=== PATIENT | female | born 1925 | race Caucasian/White ===

== ENCOUNTER 2016-04-20 00:18 | Inpatient (IN) ==
--- NOTE | 2016-04-20 00:53 | Emergency Department Note ---
Disposition Clinical Impression: Bacteriuria Pneumonia Qualifiers: Aspiration pneumonia type: unspecified Laterality: right Lung location: upper lobe of lung Altered mental status Qualifiers: Altered mental status type: unspecified Qualified Code(s): R41.82 - Altered mental status, unspecified Fever Qualifiers: Fever type: unspecified Qualified Code(s): R50.9 - Fever, unspecified Disposition: Admitted As Inpatient Condition: Fair General Adult HPI - General Chief complaint: ED Altered Mental Status Stated complaint: altered mental status, HTN Source: EMS Nursing Notes Reviewed: Yes Vital Signs Reviewed: Yes - History of Present Illness HPI Narrative: 89 y/o female with dementia. At a group home and had worsening mental status. She will not answer questions and follows commands sporatically. PMH of HTN, GERD, dementia. Nursing report said approximately 5 hrs [employer] she was acting more of herself. No focal neurologic signs. No facial droop. Pain Scale: 0 Improves with: nothing Worsens with: nothing Treatments Prior to Arrival: none - Related Data Home Medications Medication Instructions Recorded Confirmed Albuterol Sulfate [Albuterol 1 - 2 puff IH Q6H PRN 11/08/14 07/25/15 Inhaler] Budesonide/Formoterol 160/4.5 2 puff IH BID 11/08/14 07/25/15 [Symbicort] Cholecalciferol (Vitamin D3) 2,000 unit PO DAILY 11/08/14 07/25/15 [Vitamin D3] Cyanocobalamin (B-12) [Vitamin B12] 1,000 mcg IM QMONTH 11/08/14 07/25/15 Divalproex (24 HR) [Depakote ER 250 mg PO BID 11/08/14 07/25/15 (24 HR)] Docusate [Colace] 100 mg PO BID 11/08/14 07/25/15 Escitalopram [Lexapro] 5 mg PO DAILY 11/08/14 07/25/15 Gabapentin [Gralise] 300 mg PO BID 11/08/14 07/25/15 Isosorbide MONOnitrate (24 HR) 60 mg PO DAILY 11/08/14 07/25/15 [Imdur] Meclizine [Antivert] 12.5 mg PO DAILY PRN 11/08/14 07/25/15 Simvastatin [Zocor] 20 mg PO QPM 11/08/14 07/25/15 Tiotropium [Spiriva] 18 mcg IH DAILY 11/08/14 07/25/15 Acetaminophen [Tylenol] 325 mg PO Q6HR PRN 02/15/15 07/25/15 Ferrous Sulfate 325 mg PO DAILY 02/15/15 05/25/15 Metoprolol XL (24 HR) Succ [Toprol 50 mg PO DAILY 02/15/15 07/25/15 XL] Ranolazine [Ranexa] 1,000 mg PO BID 02/15/15 07/25/15 Bisacodyl [Dulcolax] 10 mg RC DAILY PRN 05/14/15 07/25/15 Mag Hydrox/Al Hydrox/Simeth 30 ml PO Q8H PRN 05/14/15 07/25/15 [Antacid II-Simethicone Liq] Menthol [Biofreeze] 1 appl TP TID PRN 05/14/15 07/25/15 Nitroglycerin [Nitrostat] 0.4 mg SL AD PRN 05/14/15 07/25/15 Amlodipine [Norvasc] 2.5 mg PO DAILY 07/25/15 07/25/15 Previous Rx's Medication Instructions Recorded Omeprazole [PriLOSEC] 40 mg PO DAILY@0600 #0 capsule 05/27/15 Allergies Allergy/AdvReac Type Severity Reaction Status Date / Time codeine Allergy See Verified 04/20/16 00:21 Comments Iodinated Contrast Media - Allergy See Verified 04/20/16 00:21 Oral and Comments [Iodinated Contrast Media - IV Dye] iodine Allergy See Verified 04/20/16 00:21 Comments Limitations: ROS unobtainable due to patients medical condition Past Medical History - Past Medical History Medical history: Reports: COPD, dementia, diabetes, hyperlipidemia, hypertension , myocardial infarction, renal disease Surgical history: Reports: other Psychiatric history: Reports: depression - Social History Smoking Status: Never smoker Smokeless Tobacco Status: No Alcohol use: Reports: none Drug use: Reports: none Physical Exam - General Limitations: altered mental status General appearance: alert, cachectic - Head Head exam: atraumatic - Eye Eye exam: Present: normal appearance - ENT ENT exam: normal exam, normal oropharynx - Neck Neck exam: Present: normal inspection - Chest Chest inspection: Present: normal inspection - Respiratory Respiratory exam: Present: other (coarse lung soundso n the right.). Absent: respiratory distress - Cardiovascular Cardiovascular exam: Present: regular rate, normal rhythm - Abdominal Exam Abdominal exam: Present: soft, Non-Tender - Extremities Exam Extremities exam: Present: normal inspection - Neurological Exam Neurological exam: Present: alert, other (follows simple commands. Decreased general muscle strength) - Skin Skin exam: Present: warm, dry Course Course Narrative: No stroke alert called as this is a generalized confusion with no focal deficit. Will do AMS workup. - Reevaluation(s) Reevaluation #1: She has been coughing in the ER. Combination of the fever, cough leads me to empirically treat for pneumonia. Urine has bacteria but no white cells. She is DNR-cc but she is unable to currently take oral antibiotics due to her mental status. Will admit for iv abx and fluids. Accepted by Dr Linton Vital Signs Temperature 99.2 F 04/20/16 00:27 Pulse Rate 95 04/20/16 00:27 Respiratory Rate 26 04/20/16 00:27 Blood Pressure 224/132 04/20/16 00:27 O2 Sat by Pulse Oximetry 93 L 04/20/16 00:27 Temperature 101.4 F H 04/20/16 01:28 Pulse Rate 92 04/20/16 03:31 Respiratory Rate 18 04/20/16 03:31 Blood Pressure 165/134 04/20/16 03:31 O2 Sat by Pulse Oximetry 94 L 04/20/16 03:31 Oxygen Delivery Oxygen Delivery Nasal Cannula Medical Decision Making - Medical Records Medical records reviewed: Yes I reviewed the patient's medical records. - Lab Data Lab results reviewed: Yes I reviewed the patient's lab results. Result diagrams: 04/20/16 01:05 04/20/16 01:05 Lab Results 04/20/16 04/20/16 04/20/16 Range/Units 00:25 01:05 01:05 WBC 5.1 (4.3-11.1) K/mcL RBC 5.01 H (3.82-4.97) M/mcL Hgb 15.2 D (11.5-15.4) g/dL Hct 43.9 (35.3-44.9) % MCV 87.6 (83.0-100.0) fL MCH 30.3 (28.0-33.3) pg MCHC 34.6 (31.6-35.5) g/dL RDW 13.6 (11.5-14.5) % Plt Count 208 (140-400) K/mcL MPV 9.7 (9.4-12.4) fL Immature Gran % 0.4 (0-4) % Seg Neutrophils % 79.5 % Lymphocytes % 12.3 % Monocytes % 7.6 % Eosinophils % 0.0 % Basophils % 0.2 % Neutrophils # 4.1 (1.6-8.9) K/mcL Lymphocytes # 0.6 (0.6-4.6) K/mcL Monocytes # 0.4 (0.0-1.3) K/mcL Eosinophils # 0.0 (0.0-0.6) K/mcL Basophils # 0.0 (0.0-0.2) K/mcL PT 12.2 H (9.4-12.1) Seconds INR 1.1 APTT 26.9 (26.0-36.0) Seconds Sodium (136-145) mEq/L Potassium (3.5-4.5) mEq/L Chloride (98-109) mEq/L Carbon Dioxide (19-29) mEq/L BUN (7-20) mg/dL Creatinine (0.57-1.11) mg/dL Est GFR ( Amer) (> 60) Est GFR (Non-Af Amer) (> 60) BUN/Creatinine Ratio (6-26) Glucose (70-99) mg/dL POC Glucose 129 H (58-89) Calculated Osmolality (280-300) Lactic Acid (0.5-2.2) mmol/L Calcium (8.6-10.8) mg/dL Total Bilirubin (0.2-1.2) mg/dL Direct Bilirubin (0.0-0.5) mg/dL Indirect Bilirubin (0.0-1.2) mg/dL AST (5-34) Units/L ALT (0-55) Units/L Alkaline Phosphatase (38-126) Units/L Ammonia (18-72) mcmol/L Troponin I (0-0.03) ng/mL Serum Total Protein (6.0-8.3) g/dL Albumin (3.5-5.0) g/dL Globulin (2.4-3.5) g/dL Albumin/Globulin Ratio (1.1-2.2) Urine Color (Yellow) Urine Clarity (Clear) Urine pH (5.0-8.0) pH Units Ur Specific [place] (1.010-1.025) Urine Protein (Neg-Trace) mg/dL Urine Glucose (UA) (Normal) mg/dL Urine Ketones (Negative) mg/dL Urine Blood (Negative) Urine Nitrite (Negative) Urine Bilirubin (Negative) Urine Urobilinogen (Normal) mg/dL Ur Leukocyte Esterase (Negative) Urine Microscopic RBC (0-3) per hpf Urine Microscopic WBC (0-3) per hpf Ur Squamous Epith Cells (None-Few) per lpf Urine Bacteria (None-Few) per hpf Hyaline Casts (None-Few) per lpf Ur Culture Indicated? (NO) Urine Opiates Screen (Psnfys=696) ng/mL Ur Barbiturates Screen (Nqwcod=159) ng/mL Ur Phencyclidine Scrn (Cutoff=25) ng/mL Ur Amphetamines Screen (Shtheh=3660) ng/mL U Benzodiazepines Scrn (Smovhb=730) ng/mL Urine Cocaine Screen (Cutoff= 300) ng/mL U Marijuana (THC) Screen (Cutoff = 50) ng/mL Ethyl Alcohol (0-10) mg/dL 04/20/16 04/20/16 04/20/16 Range/Units 01:05 01:05 01:05 WBC (4.3-11.1) K/mcL RBC (3.82-4.97) M/mcL Hgb (11.5-15.4) g/dL Hct (35.3-44.9) % MCV (83.0-100.0) fL MCH (28.0-33.3) pg MCHC (31.6-35.5) g/dL RDW (11.5-14.5) % Plt Count (140-400) K/mcL MPV (9.4-12.4) fL Immature Gran % (0-4) % Seg Neutrophils % % Lymphocytes % % Monocytes % % Eosinophils % % Basophils % % Neutrophils # (1.6-8.9) K/mcL Lymphocytes # (0.6-4.6) K/mcL Monocytes # (0.0-1.3) K/mcL Eosinophils # (0.0-0.6) K/mcL Basophils # (0.0-0.2) K/mcL PT (9.4-12.1) Seconds INR APTT (26.0-36.0) Seconds Sodium 136 (136-145) mEq/L Potassium 3.8 (3.5-4.5) mEq/L Chloride 99 (98-109) mEq/L Carbon Dioxide 22 (19-29) mEq/L BUN 22 H (7-20) mg/dL Creatinine 0.83 (0.57-1.11) mg/dL Est GFR ( Amer) > 60 (> 60) Est GFR (Non-Af Amer) > 60 (> 60) BUN/Creatinine Ratio 27 H (6-26) Glucose 136 H (70-99) mg/dL POC Glucose (58-89) Calculated Osmolality 287 (280-300) Lactic Acid (0.5-2.2) mmol/L Calcium 9.9 (8.6-10.8) mg/dL Total Bilirubin 0.6 (0.2-1.2) mg/dL Direct Bilirubin 0.2 (0.0-0.5) mg/dL Indirect Bilirubin 0.4 (0.0-1.2) mg/dL AST 16 (5-34) Units/L ALT 7 (0-55) Units/L Alkaline Phosphatase 80 (38-126) Units/L Ammonia 20 (18-72) mcmol/L Troponin I 0.02 (0-0.03) ng/mL Serum Total Protein 7.7 (6.0-8.3) g/dL Albumin 3.5 (3.5-5.0) g/dL Globulin 4.2 H (2.4-3.5) g/dL Albumin/Globulin Ratio 0.8 L (1.1-2.2) Urine Color (Yellow) Urine Clarity (Clear) Urine pH (5.0-8.0) pH Units Ur Specific [place] (1.010-1.025) Urine Protein (Neg-Trace) mg/dL Urine Glucose (UA) (Normal) mg/dL Urine Ketones (Negative) mg/dL Urine Blood (Negative) Urine Nitrite (Negative) Urine Bilirubin (Negative) Urine Urobilinogen (Normal) mg/dL Ur Leukocyte Esterase (Negative) Urine Microscopic RBC (0-3) per hpf Urine Microscopic WBC (0-3) per hpf Ur Squamous Epith Cells (None-Few) per lpf Urine Bacteria (None-Few) per hpf Hyaline Casts (None-Few) per lpf Ur Culture Indicated? (NO) Urine Opiates Screen (Wyspbs=100) ng/mL Ur Barbiturates Screen (Folhwq=125) ng/mL Ur Phencyclidine Scrn (Cutoff=25) ng/mL Ur Amphetamines Screen (Zzusot=9615) ng/mL U Benzodiazepines Scrn (Bnvqab=211) ng/mL Urine Cocaine Screen (Cutoff= 300) ng/mL U Marijuana (THC) Screen (Cutoff = 50) ng/mL Ethyl Alcohol < 10 (0-10) mg/dL 04/20/16 04/20/16 04/20/16 Range/Units 01:18 01:18 01:45 WBC (4.3-11.1) K/mcL RBC (3.82-4.97) M/mcL Hgb (11.5-15.4) g/dL Hct (35.3-44.9) % MCV (83.0-100.0) fL MCH (28.0-33.3) pg MCHC (31.6-35.5) g/dL RDW (11.5-14.5) % Plt Count (140-400) K/mcL MPV (9.4-12.4) fL Immature Gran % (0-4) % Seg Neutrophils % % Lymphocytes % % Monocytes % % Eosinophils % % Basophils % % Neutrophils # (1.6-8.9) K/mcL Lymphocytes # (0.6-4.6) K/mcL Monocytes # (0.0-1.3) K/mcL Eosinophils # (0.0-0.6) K/mcL Basophils # (0.0-0.2) K/mcL PT (9.4-12.1) Seconds INR APTT (26.0-36.0) Seconds Sodium (136-145) mEq/L Potassium (3.5-4.5) mEq/L Chloride (98-109) mEq/L Carbon Dioxide (19-29) mEq/L BUN (7-20) mg/dL Creatinine (0.57-1.11) mg/dL Est GFR ( Amer) (> 60) Est GFR (Non-Af Amer) (> 60) BUN/Creatinine Ratio (6-26) Glucose (70-99) mg/dL POC Glucose (58-89) Calculated Osmolality (280-300) Lactic Acid 1.1 (0.5-2.2) mmol/L Calcium (8.6-10.8) mg/dL Total Bilirubin (0.2-1.2) mg/dL Direct Bilirubin (0.0-0.5) mg/dL Indirect Bilirubin (0.0-1.2) mg/dL AST (5-34) Units/L ALT (0-55) Units/L Alkaline Phosphatase (38-126) Units/L Ammonia (18-72) mcmol/L Troponin I (0-0.03) ng/mL Serum Total Protein (6.0-8.3) g/dL Albumin (3.5-5.0) g/dL Globulin (2.4-3.5) g/dL Albumin/Globulin Ratio (1.1-2.2) Urine Color Yellow (Yellow) Urine Clarity Slightly Cloudy A (Clear) Urine pH 7.0 (5.0-8.0) pH Units Ur Specific [place] 1.020 (1.010-1.025) Urine Protein 100 H (Neg-Trace) mg/dL Urine Glucose (UA) Normal (Normal) mg/dL Urine Ketones Negative (Negative) mg/dL Urine Blood Small H (Negative) Urine Nitrite Negative (Negative) Urine Bilirubin Negative (Negative) Urine Urobilinogen Normal (Normal) mg/dL Ur Leukocyte Esterase Negative (Negative) Urine Microscopic RBC 15-30 H (0-3) per hpf Urine Microscopic WBC 0-3 (0-3) per hpf Ur Squamous Epith Cells Many H (None-Few) per lpf Urine Bacteria Many H (None-Few) per hpf Hyaline Casts None Seen (None-Few) per lpf Ur Culture Indicated? NO (NO) Urine Opiates Screen Negative (Hmoivw=418) ng/mL Ur Barbiturates Screen Negative (Dxtryf=784) ng/mL Ur Phencyclidine Scrn Negative (Cutoff=25) ng/mL Ur Amphetamines Screen Negative (Epnobl=8308) ng/mL U Benzodiazepines Scrn Negative (Jgvddh=925) ng/mL Urine Cocaine Screen Negative (Cutoff= 300) ng/mL U Marijuana (THC) Screen Negative (Cutoff = 50) ng/mL Ethyl Alcohol (0-10) mg/dL - Radiology Data Radiology results reviewed: Yes I reviewed the patient's radiology results. - EKG Data EKG #1 EKG attestation: Yes I reviewed and interpreted this EKG. EKG shows normal: sinus rhythm Rate: tachycardia Rhythm: NSR [place]/QRS: normal Interpretation: no acute changes Attestation Statement - Attestation Attestation: I, Compa Downs MD, personally performed a history and physical exam of the patient and discussed their management with the resident. I reviewed the resident's note and agree with the documented findings, medical decision making , and plan of care. 89-year-old female sent to the emergency department from a local group home because of acute change in her mental status. She was last seen by the group home staff about 4 hours prior to arrival and seemed to be her baseline self at that time. They found her tonight less alert and responsive than usual. On arrival here the patient is awake but does not answer questions or follow commands. No gross focal deficits noted. She does have a frequent moist cough. She also was noted to have a fever at the group home and also has a fever here. senior living papers indicate that she is a DNR comfort care. On examination patient is an elderly female in no acute distress. There is no cyanosis or diaphoresis. Mucous membranes are dry. Breath sounds are decreased but equal bilaterally. Heart regular rate and rhythm. Abdomen soft with normal bowel sounds. No gross focal neurological deficits. Labs reviewed. She does have moderate bacteria in her urine which was a catheterized specimen. On my interpretation she appears to have a right upper lobe infiltrate on her chest x-ray. The hospitalist, Dr. Linton, was consulted and accepted the admission of the patient.
[2016-04-20] MEDS ORDERED: *HR* Labetalol 20 MG/4 ML SYRINGE IVP ONE (00:54)
[2016-04-20 01:16] LABS: Basophils % 0.2 %; Hematocrit 43.9 % (35.3-44.9); Immature Granulocytes % 0.4 % (0-4); Lymphocytes # 0.6 K/mcL (0.6-4.6); Lymphocytes % 12.3 %; Mean Corpuscular HGB Conc 34.6 g/dL (31.6-35.5); Mean Corpuscular Hemoglobin 30.3 pg (28.0-33.3); Mean Corpuscular Volume 87.6 fL (83.0-100.0); Mean Platelet Volume 9.7 fL (9.4-12.4); Monocytes # 0.4 K/mcL (0.0-1.3); Monocytes % 7.6 %; Neutrophils # 4.1 K/mcL (1.6-8.9); Platelet Count 208 K/mcL (140-400); Red Blood Count 5.01 M/mcL (3.82-4.97); Red Cell Distribution Width 13.6 % (11.5-14.5); Segmented Neutrophils % 79.5 %
[2016-04-20 01:21] LABS: Hemoglobin 15.2 g/dL (11.5-15.4); INR 1.1; Prothrombin Time 12.2 Seconds (9.4-12.1)
[2016-04-20 01:24] LABS: Activated Partial Thrombo Time 26.9 Seconds (26.0-36.0)
[2016-04-20 01:28] LABS: Bilirubin,Urine Negative (Negative); Blood,Urine Small (Negative); Clarity,Urine Slightly Cloudy (Clear); Color,Urine Yellow (Yellow); Glucose,Urine (UA) Normal (Normal); Ketones,Urine Negative (Negative); Leukocyte Esterase,Urine Negative (Negative); Nitrite,Urine Negative (Negative); Protein,Urine 100 mg/dL (Neg-Trace); Urobilinogen,Urine Normal (Normal)
[2016-04-20 01:32] LABS: Alanine Aminotransferase 7 Units/L (0-55); Albumin 3.5 g/dL (3.5-5.0); Albumin/Globulin Ratio 0.8 (1.1-2.2); Alkaline Phosphatase 80 Units/L (38-126); Aspartate Amino Transferase 16 Units/L (5-34); BUN/Creatinine Ratio 27 (6-26); Bilirubin,Direct 0.2 mg/dL (0.0-0.5); Bilirubin,Indirect 0.4 mg/dL (0.0-1.2); Bilirubin,Total 0.6 mg/dL (0.2-1.2); Blood Urea Nitrogen 22 mg/dL (7-20); Calcium 9.9 mg/dL (8.6-10.8); Carbon Dioxide 22 mEq/L (19-29); Chloride 99 mEq/L (98-109); Globulin 4.2 g/dL (2.4-3.5); Glucose 136 mg/dL (70-99); Osmolality,Calculated 287 (280-300); Potassium 3.8 mEq/L (3.5-4.5); Sodium 136 mEq/L (136-145); Total Protein 7.7 g/dL (6.0-8.3); eGFR For African Americans > 60 (> 60); eGFR For Non-African Americans > 60 (> 60)
[2016-04-20 01:33] LABS: Ethanol < 10 mg/dL (0-10)
[2016-04-20 01:35] LABS: Amphetamine Screen,Urine Negative ng/mL (Cutoff=1000); Barbiturate Screen,Urine Negative ng/mL (Cutoff=200); Benzodiazepines Screen,Urine Negative ng/mL (Cutoff=200); Cannabinoid Screen,Urine Negative ng/mL (Cutoff = 50); Cocaine Screen,Urine Negative ng/mL (Cutoff= 300); Opiate Screen,Urine Negative ng/mL (Cutoff=300); Phencyclidine Screen,Urine Negative ng/mL (Cutoff=25)
[2016-04-20 01:40] LABS: Bacteria,Urine Many per hpf (None-Few); Hyaline Casts,Urine None Seen per lpf (None-Few); RBC,Urine 15-30 per hpf (0-3); Squamous Epithelial Cell,Urine Many per lpf (None-Few); WBC,Urine 0-3 per hpf (0-3)
[2016-04-20] MEDS ORDERED: Acetaminophen 650 MG RECTAL SUPP RC ONE (02:05)
[2016-04-20] MEDS ORDERED: 0.9 % Sodium Chloride 1,000 ML IVC ONE (03:53)
[2016-04-20] MEDS ORDERED: Vancomycin 1,000 MG in D5% in Water 250 ML IVPB ONE (03:53)
[2016-04-20] MEDS ORDERED: Piperacillin/Tazobactam 3.375 GM in D5% in Water (Mini-Bag+) 100 ML IVPB ONE (03:53)
[2016-04-20] MEDS ORDERED: Levofloxacin 750 MG/150 ML 750 MG/150 ML BAG IVPB ONE (03:53)
--- NOTE | 2016-04-20 05:03 | Internal Med History&Physical ---
<ZoltanJuan - Last Filed: 04/20/16 05:30> Date of Encounter: 04/20/16 Time of Encounter: 04:40 Assessment and Plan (1) Sepsis Status: Acute Patient did present with a fever and mild tachycardia but does not have a white count Her chest x-ray showed possible consolidation in the right upper lobe We will evaluate further with noncontrast CAT scan of chest abdomen and pelvis to rule out other sources of infection Will continue with vancomycin and Zosyn as she is resides in a halfway and is at risk for MDR pathogens Blood cultures have been collected, will also obtain urinary strep and Legionella antigens Qualifiers: Qualified Code(s): A41.9 - Sepsis, unspecified organism (2) Hypertensive urgency Status: Acute Patient presented with systolic blood pressure of 220 and responded appropriately with labetalol Will order labetalol PRN if SBP > 190 but hold if SBP < 160 Blood pressure likely contributing to patient's altered mental status Holding home antihypertensives until patient can swallow (3) Altered mental status Status: Acute Etiology is unclear, will workup metabolic versus infectious She does appear to be improving since arrival to ER for her blood pressure was better controlled Qualifiers: Altered mental status type: unspecified Qualified Code(s): R41.82 - Altered mental status, unspecified (4) COPD (chronic obstructive pulmonary disease) Status: Acute Patient appears to be breathing comfortably on home dose of oxygen Start with breathing treatments scheduled Qualifiers: Qualified Code(s): J44.9 - Chronic obstructive pulmonary disease, unspecified (5) DVT prophylaxis Status: Acute Heparin 5000 units subcutaneous twice a day Internal Medicine - H&P: HPI Chief complaint: altered mental status Admitted From: Long-term Nursing Facility Plans for Post Hospital Care: Transfer Longterm Care History of present illness: Ms. Miramontes is a 89 year old female who presents from her halfway with altered mental status. Advanced dementia and there is no family at bedside so all history is obtained from records and ER staff. Apparently, halfway sent patient to ED due to or mental status started 5 hours prior to arrival. She did not have any focal symptoms however she is unable to swallow any food and did not respond appropriately to commands. Her baseline mental status is unknown, however she apparently can swallow foods while back in the halfway. During the time of the exam, she was able to respond to some commands such as squeezing my fingers and said no when asked if she was experiencing any pain or issues breathing. Initial plan was to send patient back to halfway with oral antibiotics, but she will be admitted for IV antibiotics and fluid replacement. Past Med Surg Social Fam HX - Past Medical History Medical history: COPD, dementia, diabetes, hyperlipidemia, hypertension, myocardial infarction, renal disease Psychiatric history: depression - Past Surgical History Surgical History: other - Social History Smoking Status: Never smoker Smokeless Tobacco Status: No Alcohol use: none Drug use: none Internal Medicine - H&P: Meds Albuterol Sulfate [Albuterol Inhaler] 1 - 2 puff IH Q6H PRN 11/08/14 [History] Budesonide/Formoterol 160/4.5 [Symbicort] 2 puff IH BID 11/08/14 [History] Cholecalciferol (Vitamin D3) [Vitamin D3] 2,000 unit PO DAILY 11/08/14 [History] Cyanocobalamin (B-12) [Vitamin B12] 1,000 mcg IM QMONTH 11/08/14 [History] Divalproex (24 HR) [Depakote ER (24 HR)] 125 mg PO BID 11/08/14 [History] Gabapentin [Gralise] 300 mg PO BID 11/08/14 [History] Isosorbide MONOnitrate (24 HR) [Imdur] 30 mg PO DAILY 11/08/14 [History] Simvastatin [Zocor] 20 mg PO QPM 11/08/14 [History] Tiotropium [Spiriva] 18 mcg IH DAILY 11/08/14 [History] Acetaminophen [Tylenol] 325 mg PO Q6HR PRN 02/15/15 [History] Metoprolol XL (24 HR) Succ [Toprol XL] 50 mg PO BID 02/15/15 [History] Ranolazine [Ranexa] 1,000 mg PO BID 02/15/15 [History] Bisacodyl [Dulcolax] 10 mg RC DAILY PRN 05/14/15 [History] Mag Hydrox/Al Hydrox/Simeth [Antacid II-Simethicone Liq] 30 ml PO Q8H PRN [History] Menthol [Biofreeze] 1 appl TP TID PRN 05/14/15 [History] Nitroglycerin [Nitrostat] 0.4 mg SL Q5-6MIN PRN 05/14/15 [History] Docusate [Colace] 100 mg PO BID 04/20/16 [History] Furosemide [Lasix] 20 mg PO DAILY 04/20/16 [History] Magnesium Hydroxide [Milk of Magnesia] 30 ml PO DAILY PRN 04/20/16 [History] Levofloxacin [Levaquin] 500 mg PO DAILY #10 tablet 04/22/16 [Rx] Rivaroxaban [Xarelto] 15 mg PO DAILY #30 tablet 04/22/16 [Rx] Allergies codeine Allergy (Verified 04/20/16 00:21) See Comments Iodinated Contrast Media - Oral and [Iodinated Contrast Media - IV Dye] Allergy (Verified 04/20/16 00:21) See Comments iodine Allergy (Verified 04/20/16 00:21) See Comments ROS unobtainable: due to mental status All Systems PM: A 10-system review of systems was performed and is negative for pertinent findings except as documented above in the HPI. - Constitutional Vitals: Temp Pulse Resp BP Pulse Ox 101.4 F H 92 18 170/85 94 L 04/20/16 01:28 04/20/16 03:31 04/20/16 04:44 04/20/16 04:44 04/20/16 03:31 General appearance: Present: cachectic, A&O X 0, no acute distress. Absent: answers questions appropriately - Head Head exam: Present: atraumatic, normocephalic - Eye Eye exam: Present: PERRL, conjuntiva pink, sclera anicteric - Neck Neck exam general surgery: Present: supple, trachea midline. Absent: lymphadenopathy - Respiratory Respiratory exam: Present: rhonchi. Absent: accessory muscle use, rales, respiratory distress, wheezes - Cardiovascular Cardiovascular exam: Present: RRR, +S1, +S2. Absent: diastolic murmur, gallop, rubs, systolic murmur - GI/Abdominal GI/Abdominal exam: Present: normal bowel sounds, soft, no peritoneal signs. Absent: distended, tenderness - Extremities Exam Extremities exam: Present: warm, radial pulses palpable and symetrical. Absent : calf tenderness, cyanotic, pedal edema - Neurological Exam Neurological exam: Present: alert (does follow simple commands), no focal deficits. Absent: oriented X3, strengths equal and symetr throughout (general muscle weakness throughout), pronater drift, facial droop, speech deficit - Skin Skin exam: Present: dry, intact Internal Med - H&P Results - Labs CBC & Chem 7: 04/20/16 01:05 04/20/16 01:05 Labs: Short CBC 04/20/16 Range/Units 01:05 WBC 5.1 (4.3-11.1) K/mcL Hgb 15.2 D (11.5-15.4) g/dL Hct 43.9 (35.3-44.9) % Plt Count 208 (140-400) K/mcL Neutrophils # 4.1 (1.6-8.9) K/mcL BMP 04/20/16 01:05 Sodium 136 Potassium 3.8 Chloride 99 Carbon Dioxide 22 BUN 22 H Creatinine 0.83 Glucose 136 H Calcium 9.9 Cardiac Enzymes 04/20/16 Range/Units 01:05 Troponin I 0.02 (0-0.03) ng/mL Liver Function 04/20/16 Range/Units 01:05 Total Bilirubin 0.6 (0.2-1.2) mg/dL Direct Bilirubin 0.2 (0.0-0.5) mg/dL AST 16 (5-34) Units/L ALT 7 (0-55) Units/L Alkaline Phosphatase 80 (38-126) Units/L Albumin 3.5 (3.5-5.0) g/dL Urine 04/20/16 Range/Units 01:18 Urine Color Yellow (Yellow) Urine Clarity Slightly Cloudy A (Clear) Urine pH 7.0 (5.0-8.0) pH Units Ur Specific [place] 1.020 (1.010-1.025) Urine Protein 100 H (Neg-Trace) mg/dL Urine Glucose (UA) Normal (Normal) mg/dL - Impressions ITS Impressions Chest X-Ray 04/20/16 00:33 IMPRESSION: 1. No acute cardiopulmonary disease. Of note, evaluation of the right upper lobe is limited secondary to patient positioning. 2. COPD. D/ / Shahla Hinojosa MD / Shahla Hinojosa MD Interpreting Provider: Shahla Hinojosa MD Head CT 04/20/16 02:05 IMPRESSION: No acute intracranial abnormality. Involutional changes and moderate to severe chronic small vessel ischemic disease. D/ / Chelsey Perdomo MD / Chelsey Perdomo MD Interpreting Provider: Chelsey Perdomo MD <Jackson Linton - Last Filed: 04/25/16 01:57> Date of Encounter: 04/20/16 Assessment and Plan (1) Advanced dementia Status: Chronic . (2) SIRS (systemic inflammatory response syndrome) Status: Acute . (3) Acute and chronic respiratory failure with hypoxia Status: Acute . (4) Dehydration Status: Acute . (5) Dysphagia Status: Acute . Qualifiers: Dysphagia type: unspecified Qualified Code(s): R13.10 - Dysphagia, unspecified (6) DNR (do not resuscitate) Status: Chronic . (7) Fever Status: Acute . Qualifiers: Fever type: unspecified Qualified Code(s): R50.9 - Fever, unspecified (8) Sepsis Status: Acute . Qualifiers: Sepsis type: sepsis due to unspecified organism Qualified Code(s): A41.9 - Sepsis, unspecified organism (9) Alzheimers disease Status: Chronic . Qualifiers: Alzheimer's disease onset: late-onset Dementia behavioral disturbance: without behavioral disturbance Qualified Code(s): G30.1 - Alzheimer's disease with late onset; F02.80 - Dementia in other diseases classified elsewhere without behavioral disturbance (10) Atrial fibrillation Status: Chronic . Qualifiers: Atrial fibrillation type: chronic Qualified Code(s): I48.2 - Chronic atrial fibrillation (11) CAD (coronary artery disease) Status: Chronic . Qualifiers: Coronary Disease-Associated Artery/Lesion type: [place] artery [place] vs. transplanted heart: [place] heart Associated angina: with stable angina Qualified Code(s): I25.118 - Atherosclerotic heart disease of [place] coronary artery with other forms of angina pectoris (12) COPD (chronic obstructive pulmonary disease) Status: Chronic . Qualifiers: COPD type: unspecified COPD Qualified Code(s): J44.9 - Chronic obstructive pulmonary disease, unspecified (13) Diabetes mellitus Status: Chronic . Qualifiers: Diabetes mellitus type: type 2 Diabetes mellitus complication status: with kidney complications Diabetes mellitus complication detail: with chronic kidney disease Diabetes mellitus long term care social worker insulin use: with halfway use Chronic kidney disease stage: stage 3 (moderate) Qualified Code(s): E11.22 - Type 2 diabetes mellitus with diabetic chronic kidney disease; N18.3 - Chronic kidney disease, stage 3 (moderate); Z79.4 - long term care social worker (current) use of insulin (14) Hypertension Status: Chronic . (15) Altered mental status Status: Acute . Qualifiers: Altered mental status type: delirium Qualified Code(s): R41.0 - Disorientation, unspecified (16) Hypertensive urgency Status: Acute . (17) HCAP (healthcare-associated pneumonia) Status: Acute . (18) Aspiration into respiratory tract Status: Acute . Qualifiers: Encounter type: initial encounter Qualified Code(s): T17.908A - Unspecified foreign body in respiratory tract, part unspecified causing other injury, initial encounter (19) Frail elderly Status: Chronic . (20) Bacteriuria Status: Acute . (21) Constipation Status: Chronic . Qualifiers: Constipation type: slow transit constipation Qualified Code(s): K59.01 - Slow transit constipation (22) Delirium due to conditions classified elsewhere Status: Acute . (23) Encephalopathy acute Status: Acute . Internal Medicine - H&P: HPI History of present illness: Ms. Miramontes is a 89 year old female NH patient was admitted to [facility] via the emergency department due to acute alteration in baseline mental status. The patient was visited and interviewed and examined. She was found to be chronically encephalopathic due to advanced dementia and a non-historian of circumstances and events. Details of history of present illness gleaned from collective records, halfway and EMS reports and ED staff query. For this encounter, I have reviewed the documentation, treatment plan, and medical decision making. I examined this patient and my medical decision-making was reviewed with the Resident Physician. I agree with the documented findings, disposition and treatment plan as described except to the extent set forth below. Cumulative laboratory and radiographic database was reviewed, considered and discussed. Given the patient's presenting concerns, past medical history, clinical findings and symptoms, she is admitted at this time to undergo further evaluation and disposition. Orders written. Past Med Surg Social Fam HX - Past Medical History Source: old records reviewed Medical history: arthritis, COPD, coronary artery disease, dementia (Alzheimer' s disease unspecified.), diabetes, GERD, GI bleed (PUD.), hyperlipidemia, hypertension, myocardial infarction, osteoporosis ([place] deficiency.), peripheral artery disease, renal disease (CKD III.), other (Iron deficiency anemia. Vitamin B12 deficiency.) Psychiatric history: anxiety, depression, other - Past Surgical History Surgical History: angioplasty/stent, appendectomy, cholecystectomy, hip replacement, hysterectomy, DRAKE/BSO, other - Social History Current living situation: [facility] Activity Level: Mostly sedentary Recent Out of Country Travel Within the Last 8 Weeks: No Exposure or Possible Exposure to Illness During Travel: No All Systems PM: A 10-system review of systems was performed and is negative for pertinent findings except as documented above in the HPI. - Constitutional Vitals: Temp Pulse Resp BP Pulse Ox 98.4 F 60 14 161/76 100 04/22/16 07:48 04/22/16 07:48 04/22/16 07:48 04/22/16 07:48 04/22/16 07:48 Internal Med - H&P Results - Labs CBC & Chem 7: 04/22/16 05:35 04/22/16 05:35 - Impressions Abnormal lab results WBC 4.1 K/mcL (4.3-11.1) L 04/22/16 05:35 RBC 3.79 M/mcL (3.82-4.97) L 04/22/16 05:35 Hct 34.6 % (35.3-44.9) L 04/22/16 05:35 Plt Count 135 K/mcL (140-400) L 04/22/16 05:35 Reactive Lymphocytes Present (Not Present) A 04/22/16 05:35 Platelet Estimate Slight Decrease (Normal) L 04/22/16 05:35 PT 12.2 Seconds (9.4-12.1) H 04/20/16 01:05 BUN 25 mg/dL (7-20) H 04/22/16 05:35 BUN/Creatinine Ratio 30 (6-26) H 04/22/16 05:35 Glucose 101 mg/dL (70-99) H 04/22/16 05:35 POC Glucose 98 (58-89) H 04/22/16 08:57 Globulin 4.2 g/dL (2.4-3.5) H 04/20/16 01:05 Albumin/Globulin Ratio 0.8 (1.1-2.2) L 04/20/16 01:05 Vitamin B12 912 pg/mL (213-816) H 04/20/16 05:42 Urine Clarity Slightly Cloudy (Clear) A 04/20/16 01:18 Urine Protein 100 mg/dL (Neg-Trace) H 04/20/16 01:18 Urine Blood Small (Negative) H 04/20/16 01:18 Urine Microscopic RBC 15-30 per hpf (0-3) H 04/20/16 01:18 Ur Squamous Epith Cells Many per lpf (None-Few) H 04/20/16 01:18 Urine Bacteria Many per hpf (None-Few) H 04/20/16 01:18 MRSA Surveillance Scrn Positive (Negative) A 04/22/16 06:25 Allergies Allergy/AdvReac Type Severity Reaction Status Date / Time codeine Allergy See Verified 04/20/16 00:21 Comments Iodinated Contrast Media - Allergy See Verified 04/20/16 00:21 Oral and Comments [Iodinated Contrast Media - IV Dye] iodine Allergy See Verified 04/20/16 00:21 Comments Laboratory Last Values WBC 4.1 K/mcL (4.3-11.1) L 04/22/16 05:35 RBC 3.79 M/mcL (3.82-4.97) L 04/22/16 05:35 Hgb 11.5 g/dL (11.5-15.4) D 04/22/16 05:35 Hct 34.6 % (35.3-44.9) L 04/22/16 05:35 MCV 91.3 fL (83.0-100.0) 04/22/16 05:35 MCH 30.3 pg (28.0-33.3) 04/22/16 05:35 MCHC 33.2 g/dL (31.6-35.5) 04/22/16 05:35 RDW 13.7 % (11.5-14.5) 04/22/16 05:35 Plt Count 135 K/mcL (140-400) L 04/22/16 05:35 MPV 9.4 fL (9.4-12.4) 04/22/16 05:35 Immature Gran % 0.2 % (0-4) 04/22/16 05:35 Seg Neutrophils % 43.6 % 04/22/16 05:35 Lymphocytes % 41.8 % 04/22/16 05:35 Monocytes % 13.0 % 04/22/16 05:35 Eosinophils % 1.2 % 04/22/16 05:35 Basophils % 0.2 % 04/22/16 05:35 Neutrophils # 1.8 K/mcL (1.6-8.9) 04/22/16 05:35 Lymphocytes # 1.7 K/mcL (0.6-4.6) 04/22/16 05:35 Monocytes # 0.5 K/mcL (0.0-1.3) 04/22/16 05:35 Eosinophils # 0.1 K/mcL (0.0-0.6) 04/22/16 05:35 Basophils # 0.0 K/mcL (0.0-0.2) 04/22/16 05:35 Reactive Lymphocytes Present (Not Present) A 04/22/16 05:35 Platelet Estimate Slight Decrease (Normal) L 04/22/16 05:35 PT 12.2 Seconds (9.4-12.1) H 04/20/16 01:05 INR 1.1 04/20/16 01:05 APTT 26.9 Seconds (26.0-36.0) 04/20/16 01:05 Sodium 141 mEq/L (136-145) 04/22/16 05:35 Potassium 3.5 mEq/L (3.5-4.5) 04/22/16 05:35 Chloride 107 mEq/L (98-109) 04/22/16 05:35 Carbon Dioxide 27 mEq/L (19-29) 04/22/16 05:35 BUN 25 mg/dL (7-20) H 04/22/16 05:35 Creatinine 0.84 mg/dL (0.57-1.11) 04/22/16 05:35 Est GFR ( Amer) > 60 (> 60) 04/22/16 05:35 Est GFR (Non-Af Amer) > 60 (> 60) 04/22/16 05:35 BUN/Creatinine Ratio 30 (6-26) H 04/22/16 05:35 Glucose 101 mg/dL (70-99) H 04/22/16 05:35 POC Glucose 98 (58-89) H 04/22/16 08:57 Calculated Osmolality 297 (280-300) 04/22/16 05:35 Lactic Acid 1.1 mmol/L (0.5-2.2) 04/20/16 01:45 Calcium 8.8 mg/dL (8.6-10.8) 04/22/16 05:35 Total Bilirubin 0.6 mg/dL (0.2-1.2) 04/20/16 01:05 Direct Bilirubin 0.2 mg/dL (0.0-0.5) 04/20/16 01:05 Indirect Bilirubin 0.4 mg/dL (0.0-1.2) 04/20/16 01:05 AST 16 Units/L (5-34) 04/20/16 01:05 ALT 7 Units/L (0-55) 04/20/16 01:05 Alkaline Phosphatase 80 Units/L (38-126) 04/20/16 01:05 Ammonia 20 mcmol/L (18-72) 04/20/16 01:05 Troponin I 0.02 ng/mL (0-0.03) 04/20/16 01:05 Serum Total Protein 7.7 g/dL (6.0-8.3) 04/20/16 01:05 Albumin 3.5 g/dL (3.5-5.0) 04/20/16 01:05 Globulin 4.2 g/dL (2.4-3.5) H 04/20/16 01:05 Albumin/Globulin Ratio 0.8 (1.1-2.2) L 04/20/16 01:05 Vitamin B12 912 pg/mL (213-816) H 04/20/16 05:42 Folate 12.9 ng/mL (7.0-31.4) 04/20/16 05:42 TSH 0.951 mcIU/mL (0.350-4.840) 04/20/16 05:42 Urine Color Yellow (Yellow) 04/20/16 01:18 Urine Clarity Slightly Cloudy (Clear) A 04/20/16 01:18 Urine pH 7.0 pH Units (5.0-8.0) 04/20/16 01:18 Ur Specific [place] 1.020 (1.010-1.025) 04/20/16 01:18 Urine Protein 100 mg/dL (Neg-Trace) H 04/20/16 01:18 Urine Glucose (UA) Normal mg/dL (Normal) 04/20/16 01:18 Urine Ketones Negative mg/dL (Negative) 04/20/16 01:18 Urine Blood Small (Negative) H 04/20/16 01:18 Urine Nitrite Negative (Negative) 04/20/16 01:18 Urine Bilirubin Negative (Negative) 04/20/16 01:18 Urine Urobilinogen Normal mg/dL (Normal) 04/20/16 01:18 Ur Leukocyte Esterase Negative (Negative) 04/20/16 01:18 Urine Microscopic RBC 15-30 per hpf (0-3) H 04/20/16 01:18 Urine Microscopic WBC 0-3 per hpf (0-3) 04/20/16 01:18 Ur Squamous Epith Cells Many per lpf (None-Few) H 04/20/16 01:18 Urine Bacteria Many per hpf (None-Few) H 04/20/16 01:18 Hyaline Casts None Seen per lpf (None-Few) 04/20/16 01:18 Ur Culture Indicated? NO (NO) 04/20/16 01:18 Vancomycin Trough 12.4 mcg/mL (10-20) 04/22/16 05:35 Urine Opiates Screen Negative ng/mL (Gmesov=245) 04/20/16 01:18 Ur Barbiturates Screen Negative ng/mL (Hnybdz=260) 04/20/16 01:18 Ur Phencyclidine Scrn Negative ng/mL (Cutoff=25) 04/20/16 01:18 Ur Amphetamines Screen Negative ng/mL (Qhdjwk=8947) 04/20/16 01:18 U Benzodiazepines Scrn Negative ng/mL (Vbjjnh=778) 04/20/16 01:18 Urine Cocaine Screen Negative ng/mL (Cutoff= 300) 04/20/16 01:18 U Marijuana (THC) Screen Negative ng/mL (Cutoff = 50) 04/20/16 01:18 Ethyl Alcohol < 10 mg/dL (0-10) 04/20/16 01:05 MRSA Surveillance Scrn Positive (Negative) A 04/22/16 06:25 Chest X-Ray 04/20/16 00:33 IMPRESSION: 1. No acute cardiopulmonary disease. Of note, evaluation of the right upper lobe is limited secondary to patient positioning. 2. COPD. D/ / 04/20/2016 07:04:26 Shahla Hinojosa MD / [facility] Interpreting Provider: Shahla Hinojosa MD Head CT 04/20/16 02:05 IMPRESSION: No acute intracranial abnormality. Involutional changes and moderate to severe chronic small vessel ischemic disease. D/ / Chelsey Perdomo MD / Chelsey Perdomo MD Interpreting Provider: Chelsey Perdomo MD Abdomen/Pelvis CT 04/20/16 08:30 IMPRESSION: 1. Patient motion and lack of intravenous contrast administration partially limit evaluation. 2. Suspected infectious bronchiolitis in the right upper lobe, possibly with developing pneumonia. 3. Rectal stool impaction with a 8.9 cm x 9.1 cm stool ball and suspected stercoral proctitis. There is otherwise a mild stool volume throughout the colon. 4. Left atrial dilation without cardiomegaly. 5. Mild pulmonary artery dilation, a finding that can be seen with pulmonary hypertension. 6. Moderate coronary atherosclerotic calcifications with possible stent grafting. 7. Mild to moderate colonic diverticulosis without findings of acute diverticulitis. 8. Bony demineralization consistent with osteoporosis given the chronic T12 compression deformity. D/ / Chiki Ramirez MD / Chiki Ramirez MD Interpreting Provider: Chiki Ramirez MD Chest CT 04/20/16 08:30 IMPRESSION: 1. Patient motion and lack of intravenous contrast administration partially limit evaluation. 2. Suspected infectious bronchiolitis in the right upper lobe, possibly with developing pneumonia. 3. Rectal stool impaction with a 8.9 cm x 9.1 cm stool ball and suspected stercoral proctitis. There is otherwise a mild stool volume throughout the colon. 4. Left atrial dilation without cardiomegaly. 5. Mild pulmonary artery dilation, a finding that can be seen with pulmonary hypertension. 6. Moderate coronary atherosclerotic calcifications with possible stent grafting. 7. Mild to moderate colonic diverticulosis without findings of acute diverticulitis. 8. Bony demineralization consistent with osteoporosis given the chronic T12 compression deformity. D/ / Chiki Ramirez MD / Chiki Ramirez MD Interpreting Provider: Chiki Ramirez MD - Attending Attestation My signature below is to certify that this patient is under my care and that I, or the Resident Physician working with me, has had a [id number] encounter with this patient. Advanced care directive and situations briefly addressed. The patient does possess specific healthcare restrictions. Outpatient medications scheduled to be reviewed, confirmed and facilitated as appropriate. Reconciliation of halfway treatments including adjustments, substitutions and reintroduction into the treatment regimen will address necessary maintenance therapies for chronic pre-existing medical conditions. Hospital course will be dependent on clinical findings, treatment response and potential consultative interventions. The patient is at risk for further acute clinical decline and morbidity given this presenting chief complaint, advanced age, frailty and comorbid conditions. Condition is serious. Prognosis is guarded. CODE STATUS is DNR comfort care
[2016-04-20] MEDS ORDERED: D5% in Water 1,000 ML IV PRN (05:09)
[2016-04-20] MEDS ORDERED: Ondansetron 4 MG/2 ML VIAL IVP PRN (05:09)
[2016-04-20] MEDS ORDERED: Dextrose Gel 15 GM PO PRN ×2 (05:09)
[2016-04-20] MEDS ORDERED: *HR* Dextrose 50 % in Water (Syg) 50 ML SYRINGE IVP PRN (05:09)
[2016-04-20] MEDS ORDERED: Naloxone 0.4 MG/ML INJ IVP PRN (05:09)
[2016-04-20] MEDS ORDERED: 0.9 % Sodium Chloride 1,000 ML IVC SCH (05:15)
[2016-04-20] MEDS ORDERED: Bisacodyl 10 MG RECTAL SUPPOSITORY RC PRN (05:18)
[2016-04-20] MEDS ORDERED: *HR* Labetalol 20 MG/4 ML SYRINGE IVP PRN (05:19)
[2016-04-20] MEDS ORDERED: Acetaminophen 650 MG RECTAL SUPP RC PRN (05:19)
[2016-04-20] MEDS: Insulin LISPRO 300 UNITS/3 ML VIAL SQ SCH ×4 (05:59→22:38)
[2016-04-20] MEDS ORDERED: Vancomycin 1,250 MG in D5% in Water 250 ML IVPB SCH (06:00)
[2016-04-20] MEDS ORDERED: *HR* Heparin 5,000 UNIT/ML VIAL SQ SCH (06:00)
[2016-04-20] MEDS ORDERED: Vancomycin 1,500 MG in D5% in Water 250 ML IVPB ONE (06:15)
[2016-04-20 06:50] LABS: Folate 12.9 ng/mL (7.0-31.4)
[2016-04-20] MEDS ORDERED: MOM Conc 10 ML UD.LIQ PO PRN (07:34)
[2016-04-20] MEDS ORDERED: Tiotropium 18 MCG inhalation IH SCH (09:00)
[2016-04-20] MEDS ORDERED: *HR* Rivaroxaban 10 MG TABLET PO SCH (09:00)
[2016-04-20] MEDS ORDERED: Pantoprazole 40 MG VIAL IVP SCH (09:00)
--- NOTE | 2016-04-20 09:56 | Event Note ---
Date of Encounter: 04/21/16 Time of Encounter: 09:56 89-year-old female group home resident, with underlying dementia and multiple medical problems, was admitted with worsening mental status along with poor oral intake and respiratory distress. Patient is being treated for possible pneumonia with broad-spectrum IV antibiotics for healthcare associated pneumonia. Patient seen and examined at bedside. Awake but not alert, cannot answer much. Does not appear to be in distress. Chest-S1, S2 heard, tachycardic. Lungs-coarse breath sounds bilaterally, faint crackles at right base Abdomen-soft, nontender Labs reviewed-CBC, BMP, electrolytes, lactic acid within normal limits. TSH, serum vitamin B12, folic acid noted to be normal. CT chest/abdomen shows changes suggestive of right upper lobe bronchiolitis and pneumonia, fecal impaction in rectum, diffuse diverticulosis, changes suggestive of pulmonary hypertension. Healthcare associated pneumonia-continue IV hydration along with IV antibiotics- vancomycin and Zosyn. Follow blood cultures. Nasal swab for influenza antigen negative. Urine for Legionella and strep pneumonia antigen negative. Acute and chronic encephalopathy, due to underlying infection and dehydration- continue IV hydration as above. Monitor electrolytes. Bedside swallow evaluation done and patient is able to tolerate pureed diet with honey thick liquids. Poor oral intake Constipation/fecal impaction-patient is noted to be on multiple laxatives and stool softeners at the group home, suggestive of chronic constipation. Will start Fleet enema now.
[2016-04-20] MEDS ORDERED: Budesonide/Formoterol 160/4.5 MDI IH SCH (10:00)
[2016-04-20] MEDS: Budesonide/Formoterol 160/4.5 MDI IH SCH ×2 (10:24→22:31)
[2016-04-20] MEDS: Ipratropium/Albuterol Neb 3 ML IH SCH ×3 (10:24→22:31)
[2016-04-20] MEDS: Piperacillin/Tazobactam 3.375 GM in D5% in Water (Mini-Bag+) 100 ML IVPB SCH ×3 (10:36→22:52)
[2016-04-20] MEDS: Bisacodyl 10 MG RECTAL SUPPOSITORY RC SCH (10:37)
[2016-04-20] MEDS: Isosorbide MONOnitrate (24 HR) 60 MG TAB.ER.24H PO SCH (11:45)
[2016-04-20] MEDS: Gabapentin 300 MG CAPSULE PO SCH ×2 (11:46→22:37)
[2016-04-20] MEDS: Ranolazine 500 MG TAB.ER.12H PO SCH ×2 (11:47→22:36)
[2016-04-20] MEDS: Metoprolol XL (24 HR) Succ 50 MG TAB.ER.24H PO SCH ×2 (11:50→22:36)
[2016-04-20] MEDS: Cholecalciferol (D-3) 1,000 UNIT TABLET PO SCH (11:51)
[2016-04-20] MEDS: Sennosides/Docusate Sodium TABLET PO SCH ×2 (12:07→22:37)
[2016-04-20] MEDS: Divalproex (24 HR) 250 MG TABLET PO SCH (14:14)
[2016-04-20] MEDS: 0.9 % Sodium Chloride 1,000 ML IVC SCH (22:51)
[2016-04-20] MEDS: Divalproex Sodium 125 MG CAPSULE PO SCH (23:01)
[2016-04-21] MEDS: Ipratropium/Albuterol Neb 3 ML IH SCH ×4 (05:00→22:37)
[2016-04-21] MEDS: Vancomycin 1,250 MG in D5% in Water 250 ML IVPB SCH (05:24)
--- NOTE | 2016-04-21 08:35 | Internal Med Progress Note ---
Date of Encounter: 04/21/16 Time of Encounter: 08:00 - Assessment and plan (1) Hypertensive urgency Current Visit: Yes Status: Resolved Assessment and plan: Noted to have elevated blood pressure at admission, which is currently controlled. IV labetalol has been used initially as she was nothing by mouth, resume home medications at this time. (2) Sepsis Current Visit: Yes Status: Acute Assessment and plan: Secondary to right-sided pneumonia. Plan as below. Qualifiers: Sepsis type: sepsis due to unspecified organism Qualified Code(s): A41.9 - Sepsis, unspecified organism (3) Pneumonia Current Visit: Yes Status: Acute Assessment and plan: Chest imaging shows right upper lobe pneumonia. Patient presented with tachycardia, hypoxia and respiratory distress. Continue IV Zosyn and vancomycin. Follow blood cultures. Continue IV hydration, monitor vital signs closely. Monitor urine output. Qualifiers: Pneumonia type: due to unspecified organism Laterality: right Lung location: upper lobe of lung Qualified Code(s): J18.1 - Lobar pneumonia, unspecified organism (4) Constipation Current Visit: Yes Status: Chronic Assessment and plan: Likely related, acute on chronic constipation. He received Fleet enema yesterday and noted to have a bowel movement last night. Continue to monitor closely, use scheduled stool softeners and laxatives. Qualifiers: Constipation type: slow transit constipation Qualified Code(s): K59.01 - Slow transit constipation (5) Diabetes mellitus Current Visit: Yes Status: Chronic Assessment and plan: Accu-Chek blood glucose monitoring with basal bolus insulin regimen. Diabetic diet as tolerated. 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 Noted to be on chronic anticoagulation with Xarelto, adjust dose according to her creatinine clearance. Qualifiers: Atrial fibrillation type: chronic Qualified Code(s): I48.2 - Chronic atrial fibrillation (7) Altered mental status Current Visit: Yes Status: Acute Assessment and plan: Acute on chronic encephalopathy due to underlying infection and dementia. Improving slowly. Continue treatment of underlying conditions. Qualifiers: Altered mental status type: unspecified Qualified Code(s): R41.82 - Altered mental status, unspecified (8) COPD (chronic obstructive pulmonary disease) Current Visit: Yes Status: Chronic Assessment and plan: Not noted to be in acute exacerbation. Continue bronchodilators and supplemental oxygen as needed. Continue inhaled corticosteroids. Qualifiers: COPD type: unspecified COPD Qualified Code(s): J44.9 - Chronic obstructive pulmonary disease, unspecified (9) Alzheimers disease Current Visit: Yes Status: Chronic Qualifiers: Alzheimer's disease onset: late-onset Dementia behavioral disturbance: without behavioral disturbance Qualified Code(s): G30.1 - Alzheimer's disease with late onset; F02.80 - Dementia in other diseases classified elsewhere without behavioral disturbance (10) CAD (coronary artery disease) Current Visit: Yes Status: Chronic Qualifiers: Coronary Disease-Associated Artery/Lesion type: [place] artery [place] vs. transplanted heart: [place] heart Associated angina: with stable angina Qualified Code(s): I25.118 - Atherosclerotic heart disease of [place] coronary artery with other forms of angina pectoris - Subjective Interval history: More awake and alert today. Able to answer me, reports that she is feeling well. Cannot answer further questions. Does not appear to be in distress. Noted to have 1 bowel movement overnight. - Constitutional Vitals: Temp Pulse Resp BP Pulse Ox 97.5 F L 60 20 152/77 92 L 04/21/16 04:07 04/21/16 04:07 04/21/16 05:00 04/21/16 04:07 04/21/16 05:00 General appearance: Present: A&O X 1. Absent: answers questions appropriately - Head Head exam: Present: atraumatic, normocephalic - Neck Neck exam general surgery: Present: supple, trachea midline. Absent: lymphadenopathy - Respiratory Respiratory exam: Present: CTAB (Bilateral coarse breath sounds anterolaterally. Upper airway gurgling noted.). Absent: accessory muscle use, rales, rhonchi, wheezes - Cardiovascular Cardiovascular exam: Present: RRR, +S1, +S2. Absent: diastolic murmur, gallop, rubs, systolic murmur - GI/Abdominal GI/Abdominal exam: Present: normal bowel sounds, soft, no peritoneal signs. Absent: distended, tenderness - Extremities Exam Extremities exam: Present: pedal edema, warm (Right lower extremity with feeble pulses, no evidence of ischemia/gangrene), radial pulses palpable and symetrical. Absent: calf tenderness, cyanotic Internal Medicine: Result - Labs CBC & Chem 7: 04/20/16 01:05 04/20/16 01:05 - ABG Interpretation ABG results: PT/INR, D-dimer PT 12.2 Seconds (9.4-12.1) H 04/20/16 01:05 Consult Discharge Plan - Plan Referrals: Fransisco Palma MD [Primary Care Provider] -
[2016-04-21] MEDS: Insulin LISPRO 300 UNITS/3 ML VIAL SQ SCH ×4 (10:07→22:43)
[2016-04-21] MEDS: Ranolazine 500 MG TAB.ER.12H PO SCH ×2 (10:15→20:15)
[2016-04-21] MEDS: Cholecalciferol (D-3) 1,000 UNIT TABLET PO SCH (10:15)
[2016-04-21] MEDS: Sennosides/Docusate Sodium TABLET PO SCH ×2 (10:15→20:15)
[2016-04-21] MEDS: Isosorbide MONOnitrate (24 HR) 60 MG TAB.ER.24H PO SCH (10:15)
[2016-04-21] MEDS: *HR* Rivaroxaban 15 MG TABLET PO SCH (10:15)
[2016-04-21] MEDS: Metoprolol XL (24 HR) Succ 50 MG TAB.ER.24H PO SCH ×2 (10:16→20:15)
[2016-04-21] MEDS: Divalproex Sodium 125 MG CAPSULE PO SCH ×2 (10:16→20:15)
[2016-04-21] MEDS: Piperacillin/Tazobactam 3.375 GM in D5% in Water (Mini-Bag+) 100 ML IVPB SCH ×2 (10:16→16:43)
[2016-04-21] MEDS: Bisacodyl 10 MG RECTAL SUPPOSITORY RC SCH (10:16)
[2016-04-21] MEDS: Gabapentin 300 MG CAPSULE PO SCH ×2 (10:16→20:15)
[2016-04-21] MEDS: Budesonide/Formoterol 160/4.5 MDI IH SCH ×2 (10:18→22:37)
[2016-04-21 11:22] LABS: eGFR For African Americans > 60 (> 60); eGFR For Non-African Americans 54 (> 60)
[2016-04-21 11:23] LABS: Blood Urea Nitrogen 25 mg/dL (7-20)
[2016-04-21] MEDS: 0.9 % Sodium Chloride 1,000 ML IVC SCH ×2 (11:27→12:23)
[2016-04-21] MEDS: Divalproex (24 HR) 250 MG TABLET PO SCH (11:28)
[2016-04-22] MEDS: Piperacillin/Tazobactam 3.375 GM in D5% in Water (Mini-Bag+) 100 ML IVPB SCH (00:25)
[2016-04-22] MEDS: 0.9 % Sodium Chloride 1,000 ML IVC SCH (03:00)
[2016-04-22] MEDS: Ipratropium/Albuterol Neb 3 ML IH SCH ×2 (03:48→08:46)
[2016-04-22 05:45] LABS: Basophils % 0.2 %; Eosinophils # 0.1 K/mcL (0.0-0.6); Eosinophils % 1.2 %; Hematocrit 34.6 % (35.3-44.9); Immature Granulocytes % 0.2 % (0-4); Lymphocytes # 1.7 K/mcL (0.6-4.6); Lymphocytes % 41.8 %; Mean Corpuscular HGB Conc 33.2 g/dL (31.6-35.5); Mean Corpuscular Hemoglobin 30.3 pg (28.0-33.3); Mean Corpuscular Volume 91.3 fL (83.0-100.0); Mean Platelet Volume 9.4 fL (9.4-12.4); Monocytes # 0.5 K/mcL (0.0-1.3); Neutrophils # 1.8 K/mcL (1.6-8.9); Platelet Count 135 K/mcL (140-400); Red Blood Count 3.79 M/mcL (3.82-4.97); Red Cell Distribution Width 13.7 % (11.5-14.5); Segmented Neutrophils % 43.6 %
[2016-04-22 05:55] LABS: BUN/Creatinine Ratio 30 (6-26); Blood Urea Nitrogen 25 mg/dL (7-20); Calcium 8.8 mg/dL (8.6-10.8); Carbon Dioxide 27 mEq/L (19-29); Chloride 107 mEq/L (98-109); Glucose 101 mg/dL (70-99); Osmolality,Calculated 297 (280-300); Potassium 3.5 mEq/L (3.5-4.5); Sodium 141 mEq/L (136-145); eGFR For African Americans > 60 (> 60); eGFR For Non-African Americans > 60 (> 60)
[2016-04-22 06:01] LABS: Hemoglobin 11.5 g/dL (11.5-15.4)
[2016-04-22] MEDS: Vancomycin 1,250 MG in D5% in Water 250 ML IVPB SCH (06:19)
[2016-04-22 06:39] LABS: Platelet Estimate Slight Decrease (Normal); Reactive Lymphocytes Present (Not Present)
[2016-04-22 07:48] VITALS: BP 161/76
[2016-04-22] MEDS ORDERED: Levofloxacin 500 MG/100 ML 500 MG/100 ML BAG IVPB SCH (08:00)
--- NOTE | 2016-04-22 08:16 | Discharge Summary ---
Date of Encounter: 04/22/16 Time of Encounter: 08:12 - Discharge Diagnosis (1) Hypertensive urgency Priority: Primary Status: Resolved (2) Sepsis Priority: Primary Status: Acute Qualifiers: Sepsis type: sepsis due to unspecified organism Qualified Code(s): A41.9 - Sepsis, unspecified organism (3) Pneumonia Priority: Primary Status: Acute Qualifiers: Pneumonia type: due to unspecified organism Laterality: right Lung location: upper lobe of lung Qualified Code(s): J18.1 - Lobar pneumonia, unspecified organism (4) Constipation Priority: Secondary Status: Chronic Qualifiers: Constipation type: slow transit constipation Qualified Code(s): K59.01 - Slow transit constipation (5) Diabetes mellitus Priority: Secondary Status: Chronic Qualifiers: Diabetes mellitus type: type 2 Diabetes mellitus complication status: with kidney complications Diabetes mellitus complication detail: with chronic kidney disease Diabetes mellitus equipment operator intermodal yard insulin use: with equipment operator intermodal yard use Chronic kidney disease stage: stage 3 (moderate) Qualified Code(s): E11.22 - Type 2 diabetes mellitus with diabetic chronic kidney disease; N18.3 - Chronic kidney disease, stage 3 (moderate); Z79.4 - intermediate frame tender (current) use of insulin (6) Atrial fibrillation Priority: Secondary Status: Chronic Qualifiers: Atrial fibrillation type: chronic Qualified Code(s): I48.2 - Chronic atrial fibrillation (7) Altered mental status Priority: Primary Status: Resolved Qualifiers: Altered mental status type: delirium Qualified Code(s): R41.0 - Disorientation, unspecified (8) COPD (chronic obstructive pulmonary disease) Priority: Secondary Status: Chronic Qualifiers: COPD type: unspecified COPD Qualified Code(s): J44.9 - Chronic obstructive pulmonary disease, unspecified (9) Alzheimers disease Priority: Secondary Status: Chronic Qualifiers: Alzheimer's disease onset: late-onset Dementia behavioral disturbance: without behavioral disturbance Qualified Code(s): G30.1 - Alzheimer's disease with late onset; F02.80 - Dementia in other diseases classified elsewhere without behavioral disturbance (10) CAD (coronary artery disease) Priority: Secondary Status: Chronic Qualifiers: Coronary Disease-Associated Artery/Lesion type: [place] artery [place] vs. transplanted heart: [place] heart Associated angina: with stable angina Qualified Code(s): I25.118 - Atherosclerotic heart disease of [place] coronary artery with other forms of angina pectoris - Discharge Medications Prescriptions: Levofloxacin [Levaquin] 500 mg PO DAILY #10 tablet Rivaroxaban [Xarelto] 15 mg PO DAILY #30 tablet Home Medications: Albuterol Sulfate [Albuterol Inhaler] 1 - 2 puff IH Q6H PRN 11/08/14 [History] Budesonide/Formoterol 160/4.5 [Symbicort] 2 puff IH BID 11/08/14 [History] Cholecalciferol (Vitamin D3) [Vitamin D3] 2,000 unit PO DAILY 11/08/14 [History] Cyanocobalamin (B-12) [Vitamin B12] 1,000 mcg IM QMONTH 11/08/14 [History] Divalproex (24 HR) [Depakote ER (24 HR)] 125 mg PO BID 11/08/14 [History] Gabapentin [Gralise] 300 mg PO BID 11/08/14 [History] Isosorbide MONOnitrate (24 HR) [Imdur] 30 mg PO DAILY 11/08/14 [History] Simvastatin [Zocor] 20 mg PO QPM 11/08/14 [History] Tiotropium [Spiriva] 18 mcg IH DAILY 11/08/14 [History] Acetaminophen [Tylenol] 325 mg PO Q6HR PRN 02/15/15 [History] Metoprolol XL (24 HR) Succ [Toprol XL] 50 mg PO BID 02/15/15 [History] Ranolazine [Ranexa] 1,000 mg PO BID 02/15/15 [History] Bisacodyl [Dulcolax] 10 mg RC DAILY PRN 05/14/15 [History] Mag Hydrox/Al Hydrox/Simeth [Antacid II-Simethicone Liq] 30 ml PO Q8H PRN [History] Menthol [Biofreeze] 1 appl TP TID PRN 05/14/15 [History] Nitroglycerin [Nitrostat] 0.4 mg SL Q5-6MIN PRN 05/14/15 [History] Docusate [Colace] 100 mg PO BID 04/20/16 [History] Furosemide [Lasix] 20 mg PO DAILY 04/20/16 [History] Magnesium Hydroxide [Milk of Magnesia] 30 ml PO DAILY PRN 04/20/16 [History] Levofloxacin [Levaquin] 500 mg PO DAILY #10 tablet 04/22/16 [Rx] Rivaroxaban [Xarelto] 15 mg PO DAILY #30 tablet 04/22/16 [Rx] Allergies/Adverse Reactions: Allergies codeine Allergy (Verified 04/20/16 00:21) See Comments Iodinated Contrast Media - Oral and [Iodinated Contrast Media - IV Dye] Allergy (Verified 04/20/16 00:21) See Comments iodine Allergy (Verified 04/20/16 00:21) See Comments Date of admission: 04/20/16 14:10 Primary care physician: Fransisco Palma Discharging clinician: Theresa Gonzalez Anticipated date of discharge: 04/22/16 - Patient Status Disposition: Transfer SNF Condition: Fair Functional capacity at discharge: bed bound Overall status at discharge: patient is progressing back to baseline - Discharge Instructions Follow Up With: Fransisco Palma MD [Primary Care Provider] - - Diet and Activity Activity: as per physical therapy, wear oxygen at all times Diet: diabetic diet, low fat, low cholesterol, low salt diet, other (pureed with honey thick liquids) Hospital course: Ms. Miramontes is a 89 year old female correction resident with the above medical problems who was sent from the [facility] for evaluation of altered mental status and poor oral intake. Chest x-ray and CT chest done in the emergency room show right upper lobe pneumonia. CT abdomen/pelvis shows rectal stool impaction. Patient was started on IV hydration along with broad-spectrum IV antibiotics for possible healthcare associated pneumonia. Blood and sputum cultures remained negative. Bedside swallow evaluation was done and patient was cleared to eat pureed diet with honey thick liquids. She tolerated this well once her mental status improved. She was started on stool softeners and laxatives and she also received a Fleet enema and was noted to have bowel movements. Patient significantly improved on this regimen and she was back to baseline mental status, she does have underlying dementia. At this time, she is medically stable for discharge back to correction with oral antibiotics. - Time Spent with Patient Total time spent providing and/or coordinating discharge services: Greater than 30 minutes (45 min) - Constitutional Vitals: Temp Pulse Resp BP Pulse Ox 98.4 F 60 14 161/76 100 04/22/16 07:48 04/22/16 07:48 04/22/16 07:48 04/22/16 07:48 04/22/16 07:48 General appearance: Present: A&O X 2. Absent: answers questions appropriately - Respiratory Respiratory exam: Present: CTAB (coarse breath sounds B/L with intermittent rhonchi at right bases). Absent: accessory muscle use, rales, rhonchi, wheezes - Cardiovascular Cardiovascular exam: Present: irregular rhythm, +S1, +S2. Absent: diastolic murmur, gallop, rubs, systolic murmur
--- NOTE | 2016-04-22 08:20 | Physician Discharge Referral ---
ExtendedCare Referral Info Transfer To: [facility] Provider in Charge: Theresa Gonzalez Provider in Charge after Transfer: PCP Institutional Level of Care: Skilled - Diagnosis (1) Hypertensive urgency Priority: Primary Status: Resolved (2) Sepsis Priority: Primary Status: Acute (3) Pneumonia Priority: Primary Status: Acute (4) Constipation Priority: Secondary Status: Chronic (5) Diabetes mellitus Priority: Secondary Status: Chronic (6) Atrial fibrillation Priority: Secondary Status: Chronic (7) Altered mental status Priority: Primary Status: Resolved (8) COPD (chronic obstructive pulmonary disease) Priority: Secondary Status: Chronic (9) Alzheimers disease Priority: Secondary Status: Chronic (10) CAD (coronary artery disease) Priority: Secondary Status: Chronic Expected Duration of Placement: 4 weeks Prognosis: Fair - Transfer Medications Prescriptions: Levofloxacin [Levaquin] 500 mg PO DAILY #10 tablet Rivaroxaban [Xarelto] 15 mg PO DAILY #30 tablet Home Medications: Albuterol Sulfate [Albuterol Inhaler] 1 - 2 puff IH Q6H PRN 11/08/14 [History] Budesonide/Formoterol 160/4.5 [Symbicort] 2 puff IH BID 11/08/14 [History] Cholecalciferol (Vitamin D3) [Vitamin D3] 2,000 unit PO DAILY 11/08/14 [History] Cyanocobalamin (B-12) [Vitamin B12] 1,000 mcg IM QMONTH 11/08/14 [History] Divalproex (24 HR) [Depakote ER (24 HR)] 125 mg PO BID 11/08/14 [History] Gabapentin [Gralise] 300 mg PO BID 11/08/14 [History] Isosorbide MONOnitrate (24 HR) [Imdur] 30 mg PO DAILY 11/08/14 [History] Simvastatin [Zocor] 20 mg PO QPM 11/08/14 [History] Tiotropium [Spiriva] 18 mcg IH DAILY 11/08/14 [History] Acetaminophen [Tylenol] 325 mg PO Q6HR PRN 02/15/15 [History] Metoprolol XL (24 HR) Succ [Toprol XL] 50 mg PO BID 02/15/15 [History] Ranolazine [Ranexa] 1,000 mg PO BID 02/15/15 [History] Bisacodyl [Dulcolax] 10 mg RC DAILY PRN 05/14/15 [History] Mag Hydrox/Al Hydrox/Simeth [Antacid II-Simethicone Liq] 30 ml PO Q8H PRN [History] Menthol [Biofreeze] 1 appl TP TID PRN 05/14/15 [History] Nitroglycerin [Nitrostat] 0.4 mg SL Q5-6MIN PRN 05/14/15 [History] Docusate [Colace] 100 mg PO BID 04/20/16 [History] Furosemide [Lasix] 20 mg PO DAILY 04/20/16 [History] Magnesium Hydroxide [Milk of Magnesia] 30 ml PO DAILY PRN 04/20/16 [History] Levofloxacin [Levaquin] 500 mg PO DAILY #10 tablet 04/22/16 [Rx] Rivaroxaban [Xarelto] 15 mg PO DAILY #30 tablet 04/22/16 [Rx] Allergies/Adverse Reactions: Allergies codeine Allergy (Verified 04/20/16 00:21) See Comments Iodinated Contrast Media - Oral and [Iodinated Contrast Media - IV Dye] Allergy (Verified 04/20/16 00:21) See Comments iodine Allergy (Verified 04/20/16 00:21) See Comments - Respiratory Orders Oxygen / L per min (3-4L/min via NC) Smoking Cessation: Smoking cessation has been advised. For more information, call the [place] Tobacco Quit Line at 3-897-UTJW-NOW. - Ancillary Orders May use pressure relief devices daily prn - Advance Directives Code Status: DNR-Comfort Care - Mobility Orders Bedrest - Rehabiliation Orders Rehab Potential: Poor Rehab Orders: Evaluation for Physical Therapy, Evaluation for Occupational Therapy, Evaluation for Speech Therapy - Diet Orders No Concentrated Sweets (diabetic), Pureed (honey thick liquids), Cardiac CERTIFICATION: I certify that the transfer of the above named patient to an Extended Care Facility is necessary for the continuing treatment of the diagnosis listed. The above information is true and accurate reflection of patient's current condition. Confidential - Redisclosure prohibited without a patient's written consent.
[2016-04-22] MEDS: Budesonide/Formoterol 160/4.5 MDI IH SCH (08:46)
[2016-04-22] MEDS: *HR* Rivaroxaban 15 MG TABLET PO SCH (08:47)
[2016-04-22] MEDS: Isosorbide MONOnitrate (24 HR) 60 MG TAB.ER.24H PO SCH (08:47)
[2016-04-22] MEDS: Gabapentin 300 MG CAPSULE PO SCH (08:47)
[2016-04-22] MEDS: Divalproex Sodium 125 MG CAPSULE PO SCH (08:47)
[2016-04-22] MEDS: Sennosides/Docusate Sodium TABLET PO SCH (08:47)
[2016-04-22] MEDS: Cholecalciferol (D-3) 1,000 UNIT TABLET PO SCH (08:47)
[2016-04-22] MEDS: Metoprolol XL (24 HR) Succ 50 MG TAB.ER.24H PO SCH (08:47)
[2016-04-22] MEDS: Bisacodyl 10 MG RECTAL SUPPOSITORY RC SCH (08:48)
[2016-04-22] MEDS: Ranolazine 500 MG TAB.ER.12H PO SCH (08:48)
[2016-04-22] MEDS: Insulin LISPRO 300 UNITS/3 ML VIAL SQ SCH (08:48)
[2016-04-22] MEDS ORDERED: Aminoglycoside Consult 1 EACH MC ONE (10:18)
--- NOTE | 2016-04-24 05:42 | Electrocardiograph Report ---
[address] [address] Test Date: 2016-04-20 Pat Name: Rachel Miramontes Department: [id number] Room: 3A11 Gender: F [employer]astic Press Molder: : [id number] Requested By: Bruce Vo Order Number: [id number] Reading MD: Matt Garzon MD Measurements Intervals [place] Rate: 109 P: 218 OK: 98 QRS: 21 QRSD: 78 T: 78 QT: 319 QTc: 383 Interpretive Statements SINUS TACHYCARDIA WITH SHORT OK INTERVAL Electronically Signed On 04-24-2016 5:40:59 EST by Matt Garzon MD
== END 2016-04-22 10:19 | DRG 871 ==
LOC: 3ANU 00:18 → EMEROO 00:18 → 3ANU 04:47
PROVIDERS: ADMIT Internal Medicine; ATTEND Internal Medicine

== ENCOUNTER 2016-05-07 09:39 | Inpatient (IN) ==
[2016-05-07] MEDS ORDERED: 0.9 % Sodium Chloride 500 ML IV ONE ×2 (10:22→12:10)
--- NOTE | 2016-05-07 10:26 | Emergency Department Note ---
Disposition Clinical Impression: Chest pain Qualifiers: Chest pain type: unspecified Qualified Code(s): R07.9 - Chest pain, unspecified Atrial fibrillation Qualifiers: Atrial fibrillation type: unspecified Qualified Code(s): I48.91 - Unspecified atrial fibrillation Disposition: Admitted As Inpatient Condition: Fair Chest Pain HPI - General Chief Complaint: ED Chest Pain Stated Complaint: chest pain Time Seen by Provider: 05/07/16 09:45 Source: EMS Limitations: altered mental status Vital Signs Reviewed: Yes Nursing Notes Reviewed: Yes - History of Present Illness HPI Narrative: Patient here for evaluation of chest pain. Patient was sent from long-term physical therapy where they states she stated she had chest pain and was found to be hypotensive. Upon arrival in the emergency department patient is not able to answer many questions secondary to mental status. It is unknown whether this secondary to dementia or underlying organic disease. Patient's heart rate is 138 and looks to be irregular with no history of CHF listed in her chart. Patient is on several toe. Blood pressure in the low 90s. Will give fluid as she has no history of CHF prior to rate control. Severity scale (1-10): 0 - Related Data Home Medications Medication Instructions Recorded Confirmed Albuterol Sulfate [Albuterol 2 puff IH Q6H PRN 11/08/14 05/07/16 Inhaler] Budesonide/Formoterol 160/4.5 2 puff IH BID 11/08/14 05/07/16 [Symbicort] Cholecalciferol (Vitamin D3) 2,000 unit PO DAILY 11/08/14 05/07/16 [Vitamin D3] Cyanocobalamin (B-12) [Vitamin B12] 1,000 mcg IM QMONTH 11/08/14 05/07/16 Simvastatin [Zocor] 20 mg PO QPM 11/08/14 05/07/16 Tiotropium [Spiriva] 18 mcg IH DAILY 11/08/14 05/07/16 Acetaminophen [Tylenol] 325 mg PO Q6HR PRN 02/15/15 05/07/16 Metoprolol XL (24 HR) Succ [Toprol 50 mg PO BID 02/15/15 05/07/16 XL] Ranolazine [Ranexa] 1,000 mg PO BID 02/15/15 05/07/16 Bisacodyl [Dulcolax] 10 mg RC DAILY PRN 05/14/15 05/07/16 Mag Hydrox/Al Hydrox/Simeth 30 ml PO Q8H PRN 05/14/15 05/07/16 [Antacid II-Simethicone Liq] Menthol [Biofreeze] 1 appl TP TID PRN 05/14/15 05/07/16 Nitroglycerin [Nitrostat] 0.4 mg SL Q5-6MIN PRN 05/14/15 05/07/16 Docusate [Colace] 100 mg PO BID 04/20/16 05/07/16 Furosemide [Lasix] 20 mg PO DAILY 04/20/16 05/07/16 Magnesium Hydroxide [Milk of 2,400 mg PO DAILY PRN 04/20/16 05/07/16 Magnesia] Divalproex Sodium [Depakote 125 mg PO BID 05/07/16 05/07/16 Sprinkle] Gabapentin [Neurontin] 300 mg PO BID 05/07/16 05/07/16 Isosorbide MONOnitrate (24 HR) 30 mg PO DAILY 05/07/16 05/07/16 [Imdur] Lactose-Reduced Food [Ensure Plus] 1 bottle PO 1000,1400 05/07/16 05/07/16 Rivaroxaban [Xarelto] 20 mg PO DAILY 05/07/16 05/07/16 Allergies Allergy/AdvReac Type Severity Reaction Status Date / Time codeine Allergy See Verified 05/07/16 09:40 Comments Iodinated Contrast Media - Allergy See Verified 05/07/16 09:40 Oral and Comments [Iodinated Contrast Media - IV Dye] iodine Allergy See Verified 05/07/16 09:40 Comments Limitations: ROS unobtainable due to patients medical condition Chest Pain PMH - Past Medical History Medical history: Reports: arthritis, COPD, coronary artery disease, dementia, diabetes, GERD, GI bleed, hyperlipidemia, hypertension, myocardial infarction, osteoporosis, peripheral artery disease, renal disease, other Surgical history: Reports: angioplasty/stent, appendectomy, cholecystectomy, hip replacement, hysterectomy, DRAKE/BSO, other Psychiatric history: Reports: anxiety, depression, other - Social History Smoking Status: Never smoker Alcohol use: Reports: none Drug use: Reports: none Physical Exam - General Limitations: altered mental status General appearance: alert, in no apparent distress - Head Head exam: atraumatic, normocephalic - Eye Eye exam: Present: normal appearance - ENT ENT exam: normal exam - Neck Neck exam: Present: normal inspection, trachea midline. Absent: tenderness - Chest Chest inspection: Present: normal inspection, symmetric chest wall rise. Absent : tenderness - Respiratory Respiratory exam: Present: normal lung sounds bilaterally. Absent: respiratory distress, wheezes - Cardiovascular Cardiovascular exam: Present: tachycardia, irregular rhythm - Abdominal Exam Abdominal exam: Present: soft, Non-Tender - Extremities Exam Extremities exam: Present: normal inspection. Absent: pedal edema - Back Exam Back exam: Present: normal inspection - Expanded Neurological Exam Patient oriented to: Present: person. Absent: place, time Coma Scale Eye Opening: To Voice Coma Scale Motor Response: Withdraws to Pain Coma Scale Verbal Response: Inappropriate Coma Scale Total: 10 Course - Reevaluation(s) Reevaluation #1: Patient has repeat EKG showing atrial fibrillation. New-onset atrial fibrillation in the setting of chest pain and hypotension at presentation. Patient has been given fluids and has improved blood pressures as well as rate control. Patient will be brought in for further evaluation and management. Reevaluation #2: Patient does not have atrial fibrillation listed on her long-term health paperwork. Patient is on anticoagulation secondary to reported DVTs. - Consultations Consultation #1: Discussed with Dr. Sharp. Patient accepted for admission. Vital Signs Temperature 98.3 F 05/07/16 09:52 Pulse Rate 129 05/07/16 09:52 Respiratory Rate 18 05/07/16 09:52 Blood Pressure 81/65 05/07/16 09:52 O2 Sat by Pulse Oximetry 94 L 05/07/16 09:52 Temperature 97.6 F 05/07/16 15:36 Pulse Rate 120 05/07/16 15:36 Respiratory Rate 16 05/07/16 15:36 Blood Pressure 135/102 05/07/16 15:36 O2 Sat by Pulse Oximetry 96 05/07/16 16:53 Oxygen Delivery Oxygen Delivery Room Air Chest Pain - Medical Records Medical records reviewed: Yes I reviewed the patient's medical records. - Lab Data Lab results reviewed: Yes I reviewed the patient's lab results. Result diagrams: 05/07/16 11:03 05/07/16 11:03 Lab Results 03/06/17 03/06/17 03/06/17 Range/Units 10:30 11:03 11:03 WBC (4.3-11.1) K/mcL RBC (3.82-4.97) M/mcL Hgb (11.5-15.4) g/dL Hct (35.3-44.9) % MCV (83.0-100.0) fL MCH (28.0-33.3) pg MCHC (31.6-35.5) g/dL RDW (11.5-14.5) % Plt Count (140-400) K/mcL MPV (9.4-12.4) fL Immature Gran % (0-4) % Seg Neutrophils % % Lymphocytes % % Monocytes % % Eosinophils % % Basophils % % Neutrophils # (1.6-8.9) K/mcL Lymphocytes # (0.6-4.6) K/mcL Monocytes # (0.0-1.3) K/mcL Eosinophils # (0.0-0.6) K/mcL Basophils # (0.0-0.2) K/mcL PT 24.2 H (9.4-12.1) Seconds INR 2.2 VBG pH (7.32-7.42) pH Units VBG pCO2 (41-51) mmHg VBG pO2 (25-40) mmHg VBG HCO3 (21-27) mEq/L Sodium (136-145) mEq/L Potassium (3.5-4.5) mEq/L Chloride (98-109) mEq/L Carbon Dioxide (19-29) mEq/L BUN (7-20) mg/dL Creatinine (0.57-1.11) mg/dL Est GFR ( Amer) (> 60) Est GFR (Non-Af Amer) (> 60) BUN/Creatinine Ratio (6-26) Glucose (70-99) mg/dL Calculated Osmolality (280-300) Lactic Acid (0.5-2.2) mmol/L Calcium (8.6-10.8) mg/dL Magnesium (1.6-2.6) mg/dL Total Bilirubin (0.2-1.2) mg/dL Direct Bilirubin (0.0-0.5) mg/dL Indirect Bilirubin (0.0-1.2) mg/dL AST (5-34) Units/L ALT (0-55) Units/L Alkaline Phosphatase (38-126) Units/L Troponin I (0-0.03) ng/mL B-Natriuretic Peptide 332 H (0-100) pg/mL Serum Total Protein (6.0-8.3) g/dL Albumin (3.5-5.0) g/dL Globulin (2.4-3.5) g/dL Albumin/Globulin Ratio (1.1-2.2) TSH (0.350-4.840) mcIU/mL Urine Color Dark Yellow (Yellow) Urine Clarity Clear (Clear) Urine pH 6.5 (5.0-8.0) pH Units Ur Specific [place] 1.016 (1.010-1.025) Urine Protein Trace (Neg-Trace) mg/dL Urine Glucose (UA) Normal (Normal) mg/dL Urine Ketones Negative (Negative) mg/dL Urine Blood Negative (Negative) Urine Nitrite Negative (Negative) Urine Bilirubin Negative (Negative) Urine Urobilinogen Normal (Normal) mg/dL Ur Leukocyte Esterase Negative (Negative) Urine Microscopic RBC 0-3 (0-3) per hpf Urine Microscopic WBC 0-3 (0-3) per hpf Ur Squamous Epith Cells Many H (None-Few) per lpf Urine Bacteria None Seen (None-Few) per hpf Hyaline Casts None Seen (None-Few) per lpf Ur Culture Indicated? NO (NO) 05/07/16 05/07/16 05/07/16 Range/Units 11:03 11:03 11:03 WBC 5.1 (4.3-11.1) K/mcL RBC 4.26 (3.82-4.97) M/mcL Hgb 12.8 (11.5-15.4) g/dL Hct 39.0 (35.3-44.9) % MCV 91.5 (83.0-100.0) fL MCH 30.0 (28.0-33.3) pg MCHC 32.8 (31.6-35.5) g/dL RDW 14.3 (11.5-14.5) % Plt Count 236 (140-400) K/mcL MPV 9.9 (9.4-12.4) fL Immature Gran % 0.6 (0-4) % Seg Neutrophils % 71.3 % Lymphocytes % 19.4 % Monocytes % 7.7 % Eosinophils % 0.4 % Basophils % 0.6 % Neutrophils # 3.6 (1.6-8.9) K/mcL Lymphocytes # 1.0 (0.6-4.6) K/mcL Monocytes # 0.4 (0.0-1.3) K/mcL Eosinophils # 0.0 (0.0-0.6) K/mcL Basophils # 0.0 (0.0-0.2) K/mcL PT (9.4-12.1) Seconds INR VBG pH 7.35 (7.32-7.42) pH Units VBG pCO2 57 H (41-51) mmHg VBG pO2 38 (25-40) mmHg VBG HCO3 27.6 H (21-27) mEq/L Sodium 137 (136-145) mEq/L Potassium 3.9 (3.5-4.5) mEq/L Chloride 101 (98-109) mEq/L Carbon Dioxide 28 (19-29) mEq/L BUN 25 H (7-20) mg/dL Creatinine 1.06 (0.57-1.11) mg/dL Est GFR ( Amer) 59 L (> 60) Est GFR (Non-Af Amer) 49 L (> 60) BUN/Creatinine Ratio 24 (6-26) Glucose 123 H (70-99) mg/dL Calculated Osmolality 290 (280-300) Lactic Acid (0.5-2.2) mmol/L Calcium 9.4 (8.6-10.8) mg/dL Magnesium 1.8 (1.6-2.6) mg/dL Total Bilirubin (0.2-1.2) mg/dL Direct Bilirubin (0.0-0.5) mg/dL Indirect Bilirubin (0.0-1.2) mg/dL AST (5-34) Units/L ALT (0-55) Units/L Alkaline Phosphatase (38-126) Units/L Troponin I (0-0.03) ng/mL B-Natriuretic Peptide (0-100) pg/mL Serum Total Protein (6.0-8.3) g/dL Albumin (3.5-5.0) g/dL Globulin (2.4-3.5) g/dL Albumin/Globulin Ratio (1.1-2.2) TSH (0.350-4.840) mcIU/mL Urine Color (Yellow) Urine Clarity (Clear) Urine pH (5.0-8.0) pH Units Ur Specific [place] (1.010-1.025) Urine Protein (Neg-Trace) mg/dL Urine Glucose (UA) (Normal) mg/dL Urine Ketones (Negative) mg/dL Urine Blood (Negative) Urine Nitrite (Negative) Urine Bilirubin (Negative) Urine Urobilinogen (Normal) mg/dL Ur Leukocyte Esterase (Negative) Urine Microscopic RBC (0-3) per hpf Urine Microscopic WBC (0-3) per hpf Ur Squamous Epith Cells (None-Few) per lpf Urine Bacteria (None-Few) per hpf Hyaline Casts (None-Few) per lpf Ur Culture Indicated? (NO) 05/07/16 05/07/16 05/07/16 Range/Units 11:03 11:03 11:03 WBC (4.3-11.1) K/mcL RBC (3.82-4.97) M/mcL Hgb (11.5-15.4) g/dL Hct (35.3-44.9) % MCV (83.0-100.0) fL MCH (28.0-33.3) pg MCHC (31.6-35.5) g/dL RDW (11.5-14.5) % Plt Count (140-400) K/mcL MPV (9.4-12.4) fL Immature Gran % (0-4) % Seg Neutrophils % % Lymphocytes % % Monocytes % % Eosinophils % % Basophils % % Neutrophils # (1.6-8.9) K/mcL Lymphocytes # (0.6-4.6) K/mcL Monocytes # (0.0-1.3) K/mcL Eosinophils # (0.0-0.6) K/mcL Basophils # (0.0-0.2) K/mcL PT (9.4-12.1) Seconds INR VBG pH (7.32-7.42) pH Units VBG pCO2 (41-51) mmHg VBG pO2 (25-40) mmHg VBG HCO3 (21-27) mEq/L Sodium (136-145) mEq/L Potassium (3.5-4.5) mEq/L Chloride (98-109) mEq/L Carbon Dioxide (19-29) mEq/L BUN (7-20) mg/dL Creatinine (0.57-1.11) mg/dL Est GFR ( Amer) (> 60) Est GFR (Non-Af Amer) (> 60) BUN/Creatinine Ratio (6-26) Glucose (70-99) mg/dL Calculated Osmolality (280-300) Lactic Acid 2.2 (0.5-2.2) mmol/L Calcium (8.6-10.8) mg/dL Magnesium (1.6-2.6) mg/dL Total Bilirubin 0.5 (0.2-1.2) mg/dL Direct Bilirubin 0.2 (0.0-0.5) mg/dL Indirect Bilirubin 0.3 (0.0-1.2) mg/dL AST 10 (5-34) Units/L ALT < 6 (0-55) Units/L Alkaline Phosphatase 56 (38-126) Units/L Troponin I 0.02 (0-0.03) ng/mL B-Natriuretic Peptide (0-100) pg/mL Serum Total Protein 6.2 (6.0-8.3) g/dL Albumin 2.9 L (3.5-5.0) g/dL Globulin 3.3 (2.4-3.5) g/dL Albumin/Globulin Ratio 0.9 L (1.1-2.2) TSH (0.350-4.840) mcIU/mL Urine Color (Yellow) Urine Clarity (Clear) Urine pH (5.0-8.0) pH Units Ur Specific [place] (1.010-1.025) Urine Protein (Neg-Trace) mg/dL Urine Glucose (UA) (Normal) mg/dL Urine Ketones (Negative) mg/dL Urine Blood (Negative) Urine Nitrite (Negative) Urine Bilirubin (Negative) Urine Urobilinogen (Normal) mg/dL Ur Leukocyte Esterase (Negative) Urine Microscopic RBC (0-3) per hpf Urine Microscopic WBC (0-3) per hpf Ur Squamous Epith Cells (None-Few) per lpf Urine Bacteria (None-Few) per hpf Hyaline Casts (None-Few) per lpf Ur Culture Indicated? (NO) 05/07/16 Range/Units 11:03 WBC (4.3-11.1) K/mcL RBC (3.82-4.97) M/mcL Hgb (11.5-15.4) g/dL Hct (35.3-44.9) % MCV (83.0-100.0) fL MCH (28.0-33.3) pg MCHC (31.6-35.5) g/dL RDW (11.5-14.5) % Plt Count (140-400) K/mcL MPV (9.4-12.4) fL Immature Gran % (0-4) % Seg Neutrophils % % Lymphocytes % % Monocytes % % Eosinophils % % Basophils % % Neutrophils # (1.6-8.9) K/mcL Lymphocytes # (0.6-4.6) K/mcL Monocytes # (0.0-1.3) K/mcL Eosinophils # (0.0-0.6) K/mcL Basophils # (0.0-0.2) K/mcL PT (9.4-12.1) Seconds INR VBG pH (7.32-7.42) pH Units VBG pCO2 (41-51) mmHg VBG pO2 (25-40) mmHg VBG HCO3 (21-27) mEq/L Sodium (136-145) mEq/L Potassium (3.5-4.5) mEq/L Chloride (98-109) mEq/L Carbon Dioxide (19-29) mEq/L BUN (7-20) mg/dL Creatinine (0.57-1.11) mg/dL Est GFR ( Amer) (> 60) Est GFR (Non-Af Amer) (> 60) BUN/Creatinine Ratio (6-26) Glucose (70-99) mg/dL Calculated Osmolality (280-300) Lactic Acid (0.5-2.2) mmol/L Calcium (8.6-10.8) mg/dL Magnesium (1.6-2.6) mg/dL Total Bilirubin (0.2-1.2) mg/dL Direct Bilirubin (0.0-0.5) mg/dL Indirect Bilirubin (0.0-1.2) mg/dL AST (5-34) Units/L ALT (0-55) Units/L Alkaline Phosphatase (38-126) Units/L Troponin I (0-0.03) ng/mL B-Natriuretic Peptide (0-100) pg/mL Serum Total Protein (6.0-8.3) g/dL Albumin (3.5-5.0) g/dL Globulin (2.4-3.5) g/dL Albumin/Globulin Ratio (1.1-2.2) TSH 1.498 (0.350-4.840) mcIU/mL Urine Color (Yellow) Urine Clarity (Clear) Urine pH (5.0-8.0) pH Units Ur Specific [place] (1.010-1.025) Urine Protein (Neg-Trace) mg/dL Urine Glucose (UA) (Normal) mg/dL Urine Ketones (Negative) mg/dL Urine Blood (Negative) Urine Nitrite (Negative) Urine Bilirubin (Negative) Urine Urobilinogen (Normal) mg/dL Ur Leukocyte Esterase (Negative) Urine Microscopic RBC (0-3) per hpf Urine Microscopic WBC (0-3) per hpf Ur Squamous Epith Cells (None-Few) per lpf Urine Bacteria (None-Few) per hpf Hyaline Casts (None-Few) per lpf Ur Culture Indicated? (NO) - Radiology Data Radiology results reviewed: Yes I reviewed the patient's radiology results. - EKG Data EKG attestation: Yes I reviewed and interpreted this EKG. EKG results narrative: EKG shows atrial flutter/tachycardia with ventricular rate of 119. No significant ST elevations or depressions. Previous EKG was sinus tach with short DE interval. Patient's rhythm is irregular on the monitor. QTC of 404. No significant pathology changes except for large S waves in V3 and lead 3. Previous of 04/20/16. Attestation Statement - Attestation Attestation: I examined this patient and my medical decision-making was reviewed with the LITHOGRAPH DESIGNER/PA/Advanced Practice Nurse/Resident Physician. I agree with the documented findings, disposition and treatment plan as described except to the extent set forth below. Patient presents to the emergency department with a chief complaint chest pain. Paramedics patient was in rehabilitation and she complained of chest pain. Patient is not complaining of chest pain to them or to us. Patient has dementia. On exam she is awake alert pleasantly confused. Patient states the me she needs to use the bathroom. Plan. Patient is in atrial fibrillation. Hypotensive. Blood pressure improved with IV fluids. Admitted to medicine .
[2016-05-07 10:36] LABS: Bilirubin,Urine Negative (Negative); Blood,Urine Negative (Negative); Clarity,Urine Clear (Clear); Color,Urine Dark Yellow (Yellow); Glucose,Urine (UA) Normal (Normal); Ketones,Urine Negative (Negative); Leukocyte Esterase,Urine Negative (Negative); Nitrite,Urine Negative (Negative); PH,Urine 6.5 pH Units (5.0-8.0); Protein,Urine Trace mg/dL (Neg-Trace); Specific Gravity,Urine 1.016 (1.010-1.025); Urobilinogen,Urine Normal (Normal)
[2016-05-07 10:37] LABS: Bacteria,Urine None Seen per hpf (None-Few); Hyaline Casts,Urine None Seen per lpf (None-Few); RBC,Urine 0-3 per hpf (0-3); Squamous Epithelial Cell,Urine Many per lpf (None-Few); WBC,Urine 0-3 per hpf (0-3)
[2016-05-07 11:10] LABS: Basophils % 0.6 %; Eosinophils % 0.4 %; Hemoglobin 12.8 g/dL (11.5-15.4); Immature Granulocytes % 0.6 % (0-4); Lymphocytes % 19.4 %; Mean Corpuscular HGB Conc 32.8 g/dL (31.6-35.5); Mean Corpuscular Volume 91.5 fL (83.0-100.0); Mean Platelet Volume 9.9 fL (9.4-12.4); Monocytes # 0.4 K/mcL (0.0-1.3); Monocytes % 7.7 %; Neutrophils # 3.6 K/mcL (1.6-8.9); Platelet Count 236 K/mcL (140-400); Red Blood Count 4.26 M/mcL (3.82-4.97); Red Cell Distribution Width 14.3 % (11.5-14.5); Segmented Neutrophils % 71.3 %
[2016-05-07 11:15] LABS: VBG HCO3 27.6 mEq/L (21-27); VBG PH 7.35 pH Units (7.32-7.42)
[2016-05-07 11:20] LABS: INR 2.2; Prothrombin Time 24.2 Seconds (9.4-12.1)
[2016-05-07 11:25] LABS: Calcium 9.4 mg/dL (8.6-10.8); Potassium 3.9 mEq/L (3.5-4.5)
[2016-05-07 11:27] LABS: Albumin 2.9 g/dL (3.5-5.0); Albumin/Globulin Ratio 0.9 (1.1-2.2); Alkaline Phosphatase 56 Units/L (38-126); Aspartate Amino Transferase 10 Units/L (5-34); Bilirubin,Direct 0.2 mg/dL (0.0-0.5); Bilirubin,Indirect 0.3 mg/dL (0.0-1.2); Bilirubin,Total 0.5 mg/dL (0.2-1.2); Globulin 3.3 g/dL (2.4-3.5); Total Protein 6.2 g/dL (6.0-8.3)
[2016-05-07 11:29] LABS: Alanine Aminotransferase < 6 Units/L (0-55)
[2016-05-07] MEDS ORDERED: MOM Conc 10 ML UD.LIQ PO PRN (15:49)
[2016-05-07] MEDS ORDERED: Bisacodyl 10 MG RECTAL SUPPOSITORY RC PRN (15:49)
[2016-05-07] MEDS ORDERED: Mag Hydrox/Al Hydrox/Simeth 30 ML UDC PO PRN (15:49)
[2016-05-07] MEDS ORDERED: Nitroglycerin 0.4 MG TAB.SUBL SL PRN (15:49)
[2016-05-07] MEDS ORDERED: Ondansetron 4 MG/2 ML VIAL IVP PRN (15:51)
[2016-05-07] MEDS ORDERED: Ipratropium/Albuterol Neb 3 ML IH PRN (15:51)
[2016-05-07] MEDS ORDERED: *HR* Morphine 2 MG/ML SYRINGE IVP PRN (15:51)
[2016-05-07] MEDS ORDERED: Naloxone 0.4 MG/ML INJ IVP PRN (15:51)
[2016-05-07] MEDS ORDERED: 0.9 % Sodium Chloride 1,000 ML IVC SCH (16:00)
[2016-05-07] MEDS ORDERED: Cyanocobalamin (B-12) 1,000 MCG/ML VIAL IM SCH (16:00)
[2016-05-07 16:24] LABS: Magnesium 1.8 mg/dL (1.6-2.6)
[2016-05-07] MEDS: *HR* Digoxin 0.5 MG/2 ML AMPUL IVP SCH ×2 (17:18→23:50)
[2016-05-07] MEDS ORDERED: *HR* Metoprolol 5 MG/5 ML VIAL IVP STA (17:36)
--- NOTE | 2016-05-07 19:25 | Internal Med History&Physical ---
Date of Encounter: 05/07/16 Time of Encounter: 14:05 Internal Medicine - H&P: HPI Chief complaint: "I didn't feel good, I feel better now" Hypotension, Afib documented in ED. Admitted From: Emergency Dept Plans for Post Hospital Care: Transfer Assisted Facility History of present illness: Ms. Miramontes is a 89 year old female current resident of a [facility] where is she is undergoing rehabilitation was sent from [facility] because she complained of chest pain during physical therapy and was found to be hypotensive. No fever, no cough. At the time she arrived the ED, she was unable to answer questions, and at that time her heart rate was 138. Systolic blood pressure was 90s. She tells me she is fine now, but confirms she felt sick earlier while she was in the NH. She is unable to answer futher question, the problem appears to be comprehension. She is fixated in telling me she felt fine now, even when I posed a different question. She has underlying dementia. I am unable to confirm her CODE STATUS, hence will maintain a FULL CODE for now. Susan Orion ([phone]) is nominated as her NOK/POA. ROS: Limited my patient's status, see HPI. Attempt was made to complete a 10- point ROS. Family history: The patient is unable to provide details. Vital Signs Temperature 98.3 F 05/07/16 09:52 Pulse Rate 129 05/07/16 09:52 Respiratory Rate 18 05/07/16 09:52 Blood Pressure 81/65 05/07/16 09:52 O2 Sat by Pulse Oximetry 94 L 05/07/16 09:52 Temperature 97.6 F 05/07/16 15:36 Pulse Rate 120 05/07/16 15:36 Respiratory Rate 16 05/07/16 15:36 Blood Pressure 135/102 05/07/16 15:36 O2 Sat by Pulse Oximetry 96 05/07/16 16:53 Not in distress, she is not ill or toxic looking. she is lethargic. Not pale, anicteric, afebrile, acyanotic. Moist mucosa, EOMI, PERRL. HEENT: No JVD. No cervical lymphadenopathy, Chest : Reduced air entry, fine crackle in the right upper lobe anteriorly, relative reduction in air entry in the lung bases posteriorly. Heart: RRR (104), HS1/2, no m/r/g. Abdomen: soft, non-tender, no guarding, no rebound, no masses, BS+ : No flank tenderness, no CVA tenderness, no suprapubic tenderness. [employer]: AAO x 3, no focal neurological deficits. She is logical in is thought process. Neck is supple. Skin: No active skin lesion. Extremities: Trace pedal edema, normal pedal pulses, no calf tenderness, bilaterally Lab Results 05/07/16 05/07/16 05/07/16 Range/Units 10:30 11:03 11:03 WBC (4.3-11.1) K/mcL RBC (3.82-4.97) M/mcL Hgb (11.5-15.4) g/dL Hct (35.3-44.9) % MCV (83.0-100.0) fL MCH (28.0-33.3) pg MCHC (31.6-35.5) g/dL RDW (11.5-14.5) % Plt Count (140-400) K/mcL MPV (9.4-12.4) fL Immature Gran % (0-4) % Seg Neutrophils % % Lymphocytes % % Monocytes % % Eosinophils % % Basophils % % Neutrophils # (1.6-8.9) K/mcL Lymphocytes # (0.6-4.6) K/mcL Monocytes # (0.0-1.3) K/mcL Eosinophils # (0.0-0.6) K/mcL Basophils # (0.0-0.2) K/mcL PT 24.2 H (9.4-12.1) Seconds INR 2.2 VBG pH (7.32-7.42) pH Units VBG pCO2 (41-51) mmHg VBG pO2 (25-40) mmHg VBG HCO3 (21-27) mEq/L Sodium (136-145) mEq/L Potassium (3.5-4.5) mEq/L Chloride (98-109) mEq/L Carbon Dioxide (19-29) mEq/L BUN (7-20) mg/dL Creatinine (0.57-1.11) mg/dL Est GFR ( Amer) (> 60) Est GFR (Non-Af Amer) (> 60) BUN/Creatinine Ratio (6-26) Glucose (70-99) mg/dL Calculated Osmolality (280-300) Lactic Acid (0.5-2.2) mmol/L Calcium (8.6-10.8) mg/dL Magnesium (1.6-2.6) mg/dL Total Bilirubin (0.2-1.2) mg/dL Direct Bilirubin (0.0-0.5) mg/dL Indirect Bilirubin (0.0-1.2) mg/dL AST (5-34) Units/L ALT (0-55) Units/L Alkaline Phosphatase (38-126) Units/L Troponin I (0-0.03) ng/mL B-Natriuretic Peptide 332 H (0-100) pg/mL Serum Total Protein (6.0-8.3) g/dL Albumin (3.5-5.0) g/dL Globulin (2.4-3.5) g/dL Albumin/Globulin Ratio (1.1-2.2) TSH (0.350-4.840) mcIU/mL Urine Color Dark Yellow (Yellow) Urine Clarity Clear (Clear) Urine pH 6.5 (5.0-8.0) pH Units Ur Specific [place] 1.016 (1.010-1.025) Urine Protein Trace (Neg-Trace) mg/dL Urine Glucose (UA) Normal (Normal) mg/dL Urine Ketones Negative (Negative) mg/dL Urine Blood Negative (Negative) Urine Nitrite Negative (Negative) Urine Bilirubin Negative (Negative) Urine Urobilinogen Normal (Normal) mg/dL Ur Leukocyte Esterase Negative (Negative) Urine Microscopic RBC 0-3 (0-3) per hpf Urine Microscopic WBC 0-3 (0-3) per hpf Ur Squamous Epith Cells Many H (None-Few) per lpf Urine Bacteria None Seen (None-Few) per hpf Hyaline Casts None Seen (None-Few) per lpf Ur Culture Indicated? NO (NO) 05/07/16 05/07/16 05/07/16 Range/Units 11:03 11:03 11:03 WBC 5.1 (4.3-11.1) K/mcL RBC 4.26 (3.82-4.97) M/mcL Hgb 12.8 (11.5-15.4) g/dL Hct 39.0 (35.3-44.9) % MCV 91.5 (83.0-100.0) fL MCH 30.0 (28.0-33.3) pg MCHC 32.8 (31.6-35.5) g/dL RDW 14.3 (11.5-14.5) % Plt Count 236 (140-400) K/mcL MPV 9.9 (9.4-12.4) fL Immature Gran % 0.6 (0-4) % Seg Neutrophils % 71.3 % Lymphocytes % 19.4 % Monocytes % 7.7 % Eosinophils % 0.4 % Basophils % 0.6 % Neutrophils # 3.6 (1.6-8.9) K/mcL Lymphocytes # 1.0 (0.6-4.6) K/mcL Monocytes # 0.4 (0.0-1.3) K/mcL Eosinophils # 0.0 (0.0-0.6) K/mcL Basophils # 0.0 (0.0-0.2) K/mcL PT (9.4-12.1) Seconds INR VBG pH 7.35 (7.32-7.42) pH Units VBG pCO2 57 H (41-51) mmHg VBG pO2 38 (25-40) mmHg VBG HCO3 27.6 H (21-27) mEq/L Sodium 137 (136-145) mEq/L Potassium 3.9 (3.5-4.5) mEq/L Chloride 101 (98-109) mEq/L Carbon Dioxide 28 (19-29) mEq/L BUN 25 H (7-20) mg/dL Creatinine 1.06 (0.57-1.11) mg/dL Est GFR ( Amer) 59 L (> 60) Est GFR (Non-Af Amer) 49 L (> 60) BUN/Creatinine Ratio 24 (6-26) Glucose 123 H (70-99) mg/dL Calculated Osmolality 290 (280-300) Lactic Acid (0.5-2.2) mmol/L Calcium 9.4 (8.6-10.8) mg/dL Magnesium 1.8 (1.6-2.6) mg/dL Total Bilirubin (0.2-1.2) mg/dL Direct Bilirubin (0.0-0.5) mg/dL Indirect Bilirubin (0.0-1.2) mg/dL AST (5-34) Units/L ALT (0-55) Units/L Alkaline Phosphatase (38-126) Units/L Troponin I (0-0.03) ng/mL B-Natriuretic Peptide (0-100) pg/mL Serum Total Protein (6.0-8.3) g/dL Albumin (3.5-5.0) g/dL Globulin (2.4-3.5) g/dL Albumin/Globulin Ratio (1.1-2.2) TSH (0.350-4.840) mcIU/mL Urine Color (Yellow) Urine Clarity (Clear) Urine pH (5.0-8.0) pH Units Ur Specific [place] (1.010-1.025) Urine Protein (Neg-Trace) mg/dL Urine Glucose (UA) (Normal) mg/dL Urine Ketones (Negative) mg/dL Urine Blood (Negative) Urine Nitrite (Negative) Urine Bilirubin (Negative) Urine Urobilinogen (Normal) mg/dL Ur Leukocyte Esterase (Negative) Urine Microscopic RBC (0-3) per hpf Urine Microscopic WBC (0-3) per hpf Ur Squamous Epith Cells (None-Few) per lpf Urine Bacteria (None-Few) per hpf Hyaline Casts (None-Few) per lpf Ur Culture Indicated? (NO) 05/07/16 05/07/16 05/07/16 Range/Units 11:03 11:03 11:03 WBC (4.3-11.1) K/mcL RBC (3.82-4.97) M/mcL Hgb (11.5-15.4) g/dL Hct (35.3-44.9) % MCV (83.0-100.0) fL MCH (28.0-33.3) pg MCHC (31.6-35.5) g/dL RDW (11.5-14.5) % Plt Count (140-400) K/mcL MPV (9.4-12.4) fL Immature Gran % (0-4) % Seg Neutrophils % % Lymphocytes % % Monocytes % % Eosinophils % % Basophils % % Neutrophils # (1.6-8.9) K/mcL Lymphocytes # (0.6-4.6) K/mcL Monocytes # (0.0-1.3) K/mcL Eosinophils # (0.0-0.6) K/mcL Basophils # (0.0-0.2) K/mcL PT (9.4-12.1) Seconds INR VBG pH (7.32-7.42) pH Units VBG pCO2 (41-51) mmHg VBG pO2 (25-40) mmHg VBG HCO3 (21-27) mEq/L Sodium (136-145) mEq/L Potassium (3.5-4.5) mEq/L Chloride (98-109) mEq/L Carbon Dioxide (19-29) mEq/L BUN (7-20) mg/dL Creatinine (0.57-1.11) mg/dL Est GFR ( Amer) (> 60) Est GFR (Non-Af Amer) (> 60) BUN/Creatinine Ratio (6-26) Glucose (70-99) mg/dL Calculated Osmolality (280-300) Lactic Acid 2.2 (0.5-2.2) mmol/L Calcium (8.6-10.8) mg/dL Magnesium (1.6-2.6) mg/dL Total Bilirubin 0.5 (0.2-1.2) mg/dL Direct Bilirubin 0.2 (0.0-0.5) mg/dL Indirect Bilirubin 0.3 (0.0-1.2) mg/dL AST 10 (5-34) Units/L ALT < 6 (0-55) Units/L Alkaline Phosphatase 56 (38-126) Units/L Troponin I 0.02 (0-0.03) ng/mL B-Natriuretic Peptide (0-100) pg/mL Serum Total Protein 6.2 (6.0-8.3) g/dL Albumin 2.9 L (3.5-5.0) g/dL Globulin 3.3 (2.4-3.5) g/dL Albumin/Globulin Ratio 0.9 L (1.1-2.2) TSH (0.350-4.840) mcIU/mL Urine Color (Yellow) Urine Clarity (Clear) Urine pH (5.0-8.0) pH Units Ur Specific [place] (1.010-1.025) Urine Protein (Neg-Trace) mg/dL Urine Glucose (UA) (Normal) mg/dL Urine Ketones (Negative) mg/dL Urine Blood (Negative) Urine Nitrite (Negative) Urine Bilirubin (Negative) Urine Urobilinogen (Normal) mg/dL Ur Leukocyte Esterase (Negative) Urine Microscopic RBC (0-3) per hpf Urine Microscopic WBC (0-3) per hpf Ur Squamous Epith Cells (None-Few) per lpf Urine Bacteria (None-Few) per hpf Hyaline Casts (None-Few) per lpf Ur Culture Indicated? (NO) 05/07/16 Range/Units 11:03 WBC (4.3-11.1) K/mcL RBC (3.82-4.97) M/mcL Hgb (11.5-15.4) g/dL Hct (35.3-44.9) % MCV (83.0-100.0) fL MCH (28.0-33.3) pg MCHC (31.6-35.5) g/dL RDW (11.5-14.5) % Plt Count (140-400) K/mcL MPV (9.4-12.4) fL Immature Gran % (0-4) % Seg Neutrophils % % Lymphocytes % % Monocytes % % Eosinophils % % Basophils % % Neutrophils # (1.6-8.9) K/mcL Lymphocytes # (0.6-4.6) K/mcL Monocytes # (0.0-1.3) K/mcL Eosinophils # (0.0-0.6) K/mcL Basophils # (0.0-0.2) K/mcL PT (9.4-12.1) Seconds INR VBG pH (7.32-7.42) pH Units VBG pCO2 (41-51) mmHg VBG pO2 (25-40) mmHg VBG HCO3 (21-27) mEq/L Sodium (136-145) mEq/L Potassium (3.5-4.5) mEq/L Chloride (98-109) mEq/L Carbon Dioxide (19-29) mEq/L BUN (7-20) mg/dL Creatinine (0.57-1.11) mg/dL Est GFR ( Amer) (> 60) Est GFR (Non-Af Amer) (> 60) BUN/Creatinine Ratio (6-26) Glucose (70-99) mg/dL Calculated Osmolality (280-300) Lactic Acid (0.5-2.2) mmol/L Calcium (8.6-10.8) mg/dL Magnesium (1.6-2.6) mg/dL Total Bilirubin (0.2-1.2) mg/dL Direct Bilirubin (0.0-0.5) mg/dL Indirect Bilirubin (0.0-1.2) mg/dL AST (5-34) Units/L ALT (0-55) Units/L Alkaline Phosphatase (38-126) Units/L Troponin I (0-0.03) ng/mL B-Natriuretic Peptide (0-100) pg/mL Serum Total Protein (6.0-8.3) g/dL Albumin (3.5-5.0) g/dL Globulin (2.4-3.5) g/dL Albumin/Globulin Ratio (1.1-2.2) TSH 1.498 (0.350-4.840) mcIU/mL Urine Color (Yellow) Urine Clarity (Clear) Urine pH (5.0-8.0) pH Units Ur Specific [place] (1.010-1.025) Urine Protein (Neg-Trace) mg/dL Urine Glucose (UA) (Normal) mg/dL Urine Ketones (Negative) mg/dL Urine Blood (Negative) Urine Nitrite (Negative) Urine Bilirubin (Negative) Urine Urobilinogen (Normal) mg/dL Ur Leukocyte Esterase (Negative) Urine Microscopic RBC (0-3) per hpf Urine Microscopic WBC (0-3) per hpf Ur Squamous Epith Cells (None-Few) per lpf Urine Bacteria (None-Few) per hpf Hyaline Casts (None-Few) per lpf Ur Culture Indicated? (NO) EKG: Atrial flutter RVR @119. normal intervals, deep S waves in V3/III ( unchanged from prior), no other ST-T segment abnormalities: CXR: Stable right upper lobe opacification, same was seem in CT chest done in April. IMP Hypotension Atrial flutter with RVR Atypical chest pain in the setting of hypotension and rapid ventricular rate, likely demand ischemia. Mild dehydration Abnormal CXR: stable, suspect cryptogenic organizing pneumonia (non-infectious bronchiloalveolitis), especially in the setting of COPD, and stability for > 1 month. Chronic morbidities: Chronic atrial fibrillation HTN HLD CAD s/p CO DM2 PAD COPD CKDIII Dementia Arthritis Osteoporosis Anxiety Depression PLAN Admit to telemetry, observation IVF NS @ 100 Rapid digitalization with IV Digoxin 0.25 mg Q6H x 3 doses, then 0.125mg QD subsequently IV Metoprolol 5mg stat. Continue Metoprolol tartrate 50 mg PO BID. Trend troponins. serial EKG, 2D ECHO. Continue other medications of chronic morbidities Continue Xarelto for atrial fibrillation Reassess in the AM, intermittent chest auscultation to evaluate for fluid overload. Consult pulmonary. I discussed my plan and assessment with the patient, she verbalized understanding and is agreeable to admission. She is admitted for rate control, correction of hypotension and dehydration. Past Med Surg Social Fam HX - Past Medical History Medical history: arthritis, COPD, coronary artery disease, dementia, diabetes, GERD, GI bleed, hyperlipidemia, hypertension, myocardial infarction, osteoporosis, peripheral artery disease, renal disease, other Psychiatric history: anxiety, depression, other - Past Surgical History Surgical History: angioplasty/stent, appendectomy, cholecystectomy, hip replacement, hysterectomy, DRAKE/BSO, other - Social History Smoking Status: Never smoker Smokeless Tobacco Status: No Alcohol use: none Drug use: none Internal Medicine - H&P: Meds Albuterol Sulfate [Albuterol Inhaler] 2 puff IH Q6H PRN 11/08/14 [History] Budesonide/Formoterol 160/4.5 [Symbicort] 2 puff IH BID 11/08/14 [History] Cholecalciferol (Vitamin D3) [Vitamin D3] 2,000 unit PO DAILY 11/08/14 [History] Cyanocobalamin (B-12) [Vitamin B12] 1,000 mcg IM QMONTH 11/08/14 [History] Simvastatin [Zocor] 20 mg PO QPM 11/08/14 [History] Tiotropium [Spiriva] 18 mcg IH DAILY 11/08/14 [History] Acetaminophen [Tylenol] 325 mg PO Q6HR PRN 02/15/15 [History] Metoprolol XL (24 HR) Succ [Toprol XL] 50 mg PO BID 02/15/15 [History] Ranolazine [Ranexa] 1,000 mg PO BID 02/15/15 [History] Bisacodyl [Dulcolax] 10 mg RC DAILY PRN 05/14/15 [History] Mag Hydrox/Al Hydrox/Simeth [Antacid II-Simethicone Liq] 30 ml PO Q8H PRN [History] Menthol [Biofreeze] 1 appl TP TID PRN 05/14/15 [History] Nitroglycerin [Nitrostat] 0.4 mg SL Q5-6MIN PRN 05/14/15 [History] Docusate [Colace] 100 mg PO BID 04/20/16 [History] Furosemide [Lasix] 20 mg PO DAILY 04/20/16 [History] Magnesium Hydroxide [Milk of Magnesia] 2,400 mg PO DAILY PRN 04/20/16 [History] Divalproex Sodium [Depakote Sprinkle] 125 mg PO BID 05/07/16 [History] Gabapentin [Neurontin] 300 mg PO BID 05/07/16 [History] Isosorbide MONOnitrate (24 HR) [Imdur] 30 mg PO DAILY 05/07/16 [History] Lactose-Reduced Food [Ensure Plus] 1 bottle PO 1000,1400 05/07/16 [History] Rivaroxaban [Xarelto] 20 mg PO DAILY 05/07/16 [History] Allergies codeine Allergy (Verified 05/07/16 09:40) See Comments Iodinated Contrast Media - Oral and [Iodinated Contrast Media - IV Dye] Allergy (Verified 05/07/16 09:40) See Comments iodine Allergy (Verified 05/07/16 09:40) See Comments All Systems PM: A 10-system review of systems was performed and is negative for pertinent findings except as documented above in the HPI. - Constitutional Vitals: Temp Pulse Resp BP Pulse Ox 97.6 F 120 16 135/102 96 05/07/16 15:36 05/07/16 15:36 05/07/16 15:36 05/07/16 15:36 05/07/16 16:53 Internal Med - H&P Results - Labs CBC & Chem 7: 05/07/16 11:03 05/07/16 11:03 - VTE Reasons for not Prescribing Prophylaxis: Not indicated-Anticoagulated or INR therapeutic
[2016-05-07] MEDS: Budesonide/Formoterol 160/4.5 MDI IH SCH (19:49)
[2016-05-07] MEDS: Gabapentin 300 MG CAPSULE PO SCH (20:17)
[2016-05-07] MEDS: Metoprolol XL (24 HR) Succ 50 MG TAB.ER.24H PO SCH (20:17)
[2016-05-07] MEDS: Ranolazine 500 MG TAB.ER.12H PO SCH (20:17)
[2016-05-07] MEDS: Divalproex Sodium 125 MG CAPSULE PO SCH (20:36)
[2016-05-07] MEDS ORDERED: Gabapentin 300 MG CAPSULE PO SCH (21:00)
[2016-05-07] MEDS ORDERED: Valproic Acid Oral Soln 250 MG/5 ML UDC PO SCH (21:00)
[2016-05-08] MEDS: *HR* Digoxin 0.5 MG/2 ML AMPUL IVP SCH (06:12)
--- NOTE | 2016-05-08 06:44 | Pulmonology Consult Note ---
Date of Encounter: 05/08/16 Time of Encounter: 07:20 Assessment and Plan (1) Bronchiolitis Current Visit: Yes Status: Acute Given advanced age and dementia along with noted speech/swallow even impairment I suspect that patient has chronic aspiration this is buttressed the fact that most areas of bronchiolitis in the right upper lobe and the dependent portion. Given that patient was just treated for pneumonia this could all be the residual findings with radiographic delay to resolution. However given some areas appear to be progressing I favor retreating with a course of antibiotics. Recommend treating with Augmentin for [address] scan in 6 weeks would also do a formal speech and swallow evaluation including modified barium swallow with strict adherence to recommended dietary consistency. As part of completeness would also check a viral infectious panel although I have low suspicion that this is a viral process. I have very little concern that this represents cryptogenic organizing pneumonia (2) Atrial fibrillation Current Visit: Yes Status: Acute Rate controlled today after digoxin loading this is being managed by the primary medicine service she is also on a beta rubia and being covered with the anticoagulation Qualifiers: Atrial fibrillation type: unspecified Qualified Code(s): I48.91 - Unspecified atrial fibrillation (3) Chest pain Current Visit: Yes Status: Acute Suspect this is related to atrial fibrillation with rapid ventricular response Qualifiers: Chest pain type: unspecified Qualified Code(s): R07.9 - Chest pain, unspecified (4) Aspiration into respiratory tract Current Visit: No Status: Acute Recommend formal evaluation including modified barium swallow Qualifiers: Encounter type: initial encounter Qualified Code(s): T17.908A - Unspecified foreign body in respiratory tract, part unspecified causing other injury, initial encounter History of Present Illness Consult date: 05/08/16 Requesting physician: Lev John Reason for consult: pneumonia Chief complaint: Chest Pain History of present illness: This is a very pleasant 89-year-old woman with history of afib, CAD, MGUS who presents from skilled nursing for chest pain noted to be hypotensive with atrial fibrillation and rapid ventricular rate. As part of initial evaluation a CT chest was performed which showed right upper lobe bronchiolitis. Patient was recently admitted approximately 3 weeks ago and treated for pneumonia at that time when a chest x-ray was performed and was consistent with right upper lobe pneumonia. Patient was anemic initially treated for with vancomycin and Zosyn Deescalated at discharge to [facility]. Unfortunately she has dementia and is inconsistently able to answer all questions when I speak with her this morning she says that she does have occasional cough but does not bring anything up she denies any fevers or chills as her chest pain is is improved and in general feels better from when she was admitted. At last admission she underwent bedside speech and swallow evaluation and was cleared for nectar thick liquids it is unclear if she has been consistently taking this diet or not. Past Med Surg Social Fam HX - Past Medical History Medical history: arthritis, COPD, coronary artery disease, dementia, diabetes, GERD, GI bleed, hyperlipidemia, hypertension, myocardial infarction, osteoporosis, peripheral artery disease, renal disease, other Psychiatric history: anxiety, depression, other - Past Surgical History Surgical History: angioplasty/stent, appendectomy, cholecystectomy, hip replacement, hysterectomy, DRAKE/BSO, other - Social History Smoking Status: Never smoker Smokeless Tobacco Status: No Alcohol use: none Drug use: none Medications and Allergies Albuterol Sulfate [Albuterol Inhaler] 2 puff IH Q6H PRN 11/08/14 [History] Budesonide/Formoterol 160/4.5 [Symbicort] 2 puff IH BID 11/08/14 [History] Cholecalciferol (Vitamin D3) [Vitamin D3] 2,000 unit PO DAILY 11/08/14 [History] Cyanocobalamin (B-12) [Vitamin B12] 1,000 mcg IM QMONTH 11/08/14 [History] Simvastatin [Zocor] 20 mg PO QPM 11/08/14 [History] Tiotropium [Spiriva] 18 mcg IH DAILY 11/08/14 [History] Acetaminophen [Tylenol] 325 mg PO Q6HR PRN 02/15/15 [History] Metoprolol XL (24 HR) Succ [Toprol XL] 50 mg PO BID 02/15/15 [History] Ranolazine [Ranexa] 1,000 mg PO BID 02/15/15 [History] Bisacodyl [Dulcolax] 10 mg RC DAILY PRN 05/14/15 [History] Mag Hydrox/Al Hydrox/Simeth [Antacid II-Simethicone Liq] 30 ml PO Q8H PRN [History] Menthol [Biofreeze] 1 appl TP TID PRN 05/14/15 [History] Nitroglycerin [Nitrostat] 0.4 mg SL Q5-6MIN PRN 05/14/15 [History] Docusate [Colace] 100 mg PO BID 04/20/16 [History] Furosemide [Lasix] 20 mg PO DAILY 04/20/16 [History] Magnesium Hydroxide [Milk of Magnesia] 2,400 mg PO DAILY PRN 04/20/16 [History] Divalproex Sodium [Depakote Sprinkle] 125 mg PO BID 05/07/16 [History] Gabapentin [Neurontin] 300 mg PO BID 05/07/16 [History] Isosorbide MONOnitrate (24 HR) [Imdur] 30 mg PO DAILY 05/07/16 [History] Lactose-Reduced Food [Ensure Plus] 1 bottle PO 1000,1400 05/07/16 [History] Rivaroxaban [Xarelto] 20 mg PO DAILY 05/07/16 [History] Allergies codeine Allergy (Verified 05/07/16 09:40) See Comments Iodinated Contrast Media - Oral and [Iodinated Contrast Media - IV Dye] Allergy (Verified 05/07/16 09:40) See Comments iodine Allergy (Verified 05/07/16 09:40) See Comments All Systems: A 10-system review of systems was performed and is negative for pertinent findings except as documented above in the HPI. Physical Examination Vital Signs: Vital Signs, Last 4 Hours Pulse Resp BP Pulse Ox 05/08/16 04:00 81 15 132/80 95 General appearance: no acute distress Eyes: nonicteric ENT: oropharynx moist Neck: supple Inspection: normal Auscultation: bilateral: clear Cardiovascular: irregular rhythm Gastrointestinal: normoactive bowel sounds Extremities: no edema Musculoskeletal: no deformities non-focal exam, pupils equal and round mood appropriate Results - Laboratory Findings CBC and BMP: 05/07/16 11:03 05/07/16 11:03 PT/INR, D-dimer PT 24.2 Seconds (9.4-12.1) H 05/07/16 11:03 Abnormal lab findings: Abnormal lab results PT 24.2 Seconds (9.4-12.1) H 05/07/16 11:03 VBG pCO2 57 mmHg (41-51) H 05/07/16 11:03 VBG HCO3 27.6 mEq/L (21-27) H 05/07/16 11:03 BUN 25 mg/dL (7-20) H 05/07/16 11:03 Est GFR ( Amer) 59 (> 60) L 05/07/16 11:03 Est GFR (Non-Af Amer) 49 (> 60) L 05/07/16 11:03 Glucose 123 mg/dL (70-99) H 05/07/16 11:03 B-Natriuretic Peptide 332 pg/mL (0-100) H 05/07/16 11:03 Albumin 2.9 g/dL (3.5-5.0) L 05/07/16 11:03 Albumin/Globulin Ratio 0.9 (1.1-2.2) L 05/07/16 11:03 Ur Squamous Epith Cells Many per lpf (None-Few) H 05/07/16 10:30 - Diagnostic Findings Chest x-ray: report reviewed, image reviewed CT scan - chest: report reviewed, image reviewed - Clinical Findings Intake & Output: Intake & Output 05/07/16 05/07/16 05/08/16 15:59 23:59 07:59 Intake Total 0 / 0 1000 / 1000 Output Total 350 / 350 100 / 100 Balance -350 / -350 900 / 900 Weight 96.8 kg 71.8 kg Consult Discharge Plan - Plan Referrals: NO,PCP [Primary Care Provider] -
[2016-05-08] MEDS ORDERED: Isosorbide MONOnitrate (24 HR) 30 MG TAB.ER.24H PO SCH (09:00)
[2016-05-08] MEDS ORDERED: *HR* Rivaroxaban 15 MG TABLET PO SCH (09:00)
[2016-05-08] MEDS ORDERED: Isosorbide MONOnitrate (24 HR) 60 MG TAB.ER.24H PO SCH (09:00)
[2016-05-08] MEDS ORDERED: *HR* Digoxin 0.5 MG/2 ML AMPUL IVP SCH (09:00)
[2016-05-08] MEDS ORDERED: NON-FORMULARY MEDICATION 1 EACH EACH (Lactose-Reduced Food [Ensure Plus] 1 BOTTLE) PO SCH (10:00)
[2016-05-08] MEDS: Tiotropium 18 MCG inhalation IH SCH (10:10)
[2016-05-08] MEDS: Budesonide/Formoterol 160/4.5 MDI IH SCH ×2 (10:10→21:00)
--- NOTE | 2016-05-08 10:18 | ECHO - Doppler Report ---
Echocardiogram Name: Rachel Miramontes Date of Study: 05/08/2016 Date: 1925 Ht: 65.0 in Medical Record#: [id number] Age: 89 Wt: 158.0 lb Gender: Female BSA: 1.79 Order #: [id number] Location: [facility] Room #: 2NE17 Reading Physician: Joan Stanton DO Public Service Representative: Maryam Jo RVT, [facility] Ordering Physician: Lev John MD Primary Physician: None Indications: Chest pain, Afib with RVR Impressions: LVEF 55%. Asymmetric septal hypertrophy. Normal right ventricular size and function. Mild-moderate mitral regurgitation. Mild tricuspid regurgitation. No pulmonary hypertension. Left Ventricular Wall Motion: Rest Echo Findings The mid inferior lateral and basal inferior lateral horner were not visualized. All other wall segments showed normal motion. Findings: Study Quality * Technically sub-optimal due to clinical status. ECG Findings * Atrial fibrillation with controlled rate. Left Ventricle * Indeterminate diastolic function. * Asymmetric septal hypertrophy. * LVEF 55%. Mitral Valve * Mild mitral annular calcification * Mildly calcified mitral valve leaflets. * No mitral stenosis. * Mild-moderate mitral regurgitation. Aortic Valve * No aortic regurgitation. * Trileaflet aortic valve. * Normal aortic valve structure. * No aortic stenosis. Tricuspid Valve * Tricuspid valve not well visualized. * Mild tricuspid regurgitation. Pulmonic Valve * Pulmonic valve is not well visualized. * No pulmonic stenosis. * Trace pulmonic regurgitation. Pulmonary Artery * Pulmonary artery not well visualized. Right Ventricle * Normal right ventricular structure and function. Right Atrium * Normal right atrial size. Left Atrium * Moderately dilated left atrium. Interatrial Septum * Interatrial septum not well evaluated. IVC * The IVC is not well evaluated. Pericardium * There is no pericardial effusion present. Aorta * Normally sized aortic root. History 01-27-2013 a Previous Echo was performed. Measurements: BP: 153/ 105 2D Normal Values IVSd: 1.40 cm 0.6 - 1.0 cm LVIDd: 3.20 cm 3.7 - 5.6 cm LVPWd: 1.20 cm 0.6 - 1.1 cm LVIDs: 2.40 cm 1.5 - 3.6 cm AO: 2.80 cm < 4.0 cm LA: 3.40 cm 2.0 - 4.0cm %FS: 25.00 cm >25 % LA volume: 69 Mitral Valve Dec Time:194.00 msec Peak E:.93 m/sec Peak E' Lat Gareth:10.8 cm/s Peak E' Med Gareth:7.31 cm/s E/E' Lat Ratio:8.6 E/E' Med Ratio:12.7 Tricuspid Valve TV Regurg Peak Grad: 22.00mmHg TV Regurg Peak Gareth: 2.36m/sec Updated by Joan Stanton on 05/08/2016 10:11:13 AM electronically signed on 05/08/2016 10:13:08 AM with status of Final Wall Motion Nuñez: 1=Normal, 2=Hypokinesis, 3=Akinesis, 4=Dyskinesis, 5=Aneurysmal, 6=Hyperkinetic, X=Not Visualized (Blank)=Missing
--- NOTE | 2016-05-08 11:45 | Electrocardiograph Report ---
[address] [place] [address] Test Date: 2016-05-07 Pat Name: Rachel Miramontes Department: 104 Room: 2NE17 Gender: F Railroad Operator: : 1925 Requested By: Neville Lara Order Number: [id number] Reading MD: Matt Garzon MD Measurements Intervals [place] Rate: 119 P: [place]: 0 QRS: -10 QRSD: 88 T: 70 QT: 333 QTc: 404 Interpretive Statements ATRIAL FIBRILLATION WITH RAPID VENTRICULAR RESPONSE MINIMAL VOLTAGE CRITERIA FOR LVH INFERIOR MYOCARDIAL INFARCTION, PROBABLY OLD Electronically Signed On 05-08-2016 11:43:57 EST by Matt Garzon MD
--- NOTE | 2016-05-08 11:48 | Electrocardiograph Report ---
[address] [address] Test Date: 2016-05-07 Pat Name: Rachel Miramontes Department: 105 Room: 2NE17 Gender: F Chicken Cutter: : 1925 Requested By: Neville Lara Order Number: [id number] Reading MD: Matt Garzon MD Measurements Intervals [place] Rate: 101 P: [place]: 0 QRS: 1 QRSD: 83 T: 60 QT: 338 QTc: 396 Interpretive Statements ATRIAL FIBRILLATION WITH RAPID VENTRICULAR RESPONSE Electronically Signed On 05-08-2016 11:46:49 EST by Matt Garzon MD
[2016-05-08] MEDS ORDERED: Cyanocobalamin (B-12) 1,000 MCG/ML VIAL IM ONE (12:37)
[2016-05-08] MEDS ORDERED: *HR* Morphine 2 MG/ML SYRINGE IVP PRN (12:40)
--- NOTE | 2016-05-08 13:18 | Internal Med Progress Note ---
Date of Encounter: 05/08/16 Time of Encounter: 10:00 - Assessment and plan (1) Bronchiolitis Current Visit: Yes Status: Acute Assessment and plan: Pulmonology consult appreciated. Consider aspiration pneumonia. We will continue Augmentin by mouth for 7 days. Symptomatic treatment. (2) Chest pain Current Visit: Yes Status: Acute Assessment and plan: Possibly due to demand ischemia due to tachycardia. Improved. Continue cardiac monitoring. 3 sets of troponin negative. We will check CT chest. Qualifiers: Chest pain type: unspecified Qualified Code(s): R07.9 - Chest pain, unspecified (3) DVT prophylaxis Current Visit: No Status: Acute Assessment and plan: Patient is on xarelto (4) Atrial fibrillation Current Visit: No Status: Chronic Assessment and plan: Rate is controlled with digoxin. Will continue low-dose digoxin and metoprolol. Patient is on the xarelto for anticoagulation Qualifiers: Atrial fibrillation type: chronic Qualified Code(s): I48.2 - Chronic atrial fibrillation (5) Dementia Current Visit: No Status: Chronic Assessment and plan: Continue home medication Qualifiers: Dementia type: unspecified type Dementia behavioral disturbance: without behavioral disturbance Qualified Code(s): F03.90 - Unspecified dementia without behavioral disturbance (6) Diabetes mellitus Current Visit: No Status: Chronic Assessment and plan: Patient is not on any medication in her home medication list. Will continue with diet control. Qualifiers: Diabetes mellitus type: type 2 Diabetes mellitus complication status: with kidney complications Diabetes mellitus complication detail: with chronic kidney disease Diabetes mellitus custodial insulin use: without middle or intermediate school principal use Chronic kidney disease stage: stage 3 (moderate) Qualified Code(s): E11.22 - Type 2 diabetes mellitus with diabetic chronic kidney disease; N18.3 - Chronic kidney disease, stage 3 (moderate) (7) CAD (coronary artery disease) Current Visit: No Status: Chronic Assessment and plan: Continue home medications Qualifiers: Coronary Disease-Associated Artery/Lesion type: [place] artery [place] vs. transplanted heart: [place] heart Associated angina: with stable angina Qualified Code(s): I25.118 - Atherosclerotic heart disease of [place] coronary artery with other forms of angina pectoris - Time Spent With Patient 25 - 35 minutes - Subjective Interval history: Patient is a 89-year-old female admitted for chest pain. Her past medical history is significant for COPD, CAD, dementia, diabetes, GERD, hypertension, renal disease. Patient was seen and examined. She complains of back pain, no shortness of breath. Patient denies cough or fever. Her hypotension and A. fib RVR has improved after digoxin use. Heart rate is 75 and blood pressure 150/98. Pulmonology consult appreciated. Will place patient on antibiotic and do swallow evaluation. Also order CT thoracic spine because patient c/o back pain. 3 sets of troponins negative. Patient has documented from [facility] shows CODE STATUS is DNR CC, will place order according to the documentation. - Constitutional Vitals: Temp Pulse Resp BP Pulse Ox 97.5 F L 75 18 150/98 95 05/08/16 10:59 05/08/16 10:59 05/08/16 10:59 05/08/16 10:59 05/08/16 10:59 General appearance: Present: A&O X 3, no acute distress, answers questions appropriately - Head Head exam: Present: atraumatic, normocephalic - Eye Eye exam: Present: PERRL, conjuntiva pink, sclera anicteric Pupils: Present: PERRL - Neck Neck exam general surgery: Present: supple, trachea midline. Absent: lymphadenopathy - Respiratory Respiratory exam: Present: CTAB. Absent: accessory muscle use, rales, rhonchi, wheezes - Cardiovascular Cardiovascular exam: Present: RRR, +S1, +S2. Absent: diastolic murmur, gallop, rubs, systolic murmur - GI/Abdominal GI/Abdominal exam: Present: normal bowel sounds, soft, no peritoneal signs. Absent: distended, tenderness - Extremities Exam Extremities exam: Present: warm, radial pulses palpable and symetrical. Absent : calf tenderness, cyanotic, pedal edema - Neurological Exam Neurological exam: Present: CN II-XII intact, oriented X3, no focal deficits. Absent: pronater drift, facial droop, speech deficit - Skin Skin exam: Present: dry, intact Internal Medicine: Result - Labs CBC & Chem 7: 05/07/16 11:03 05/07/16 11:03 Labs: Cardiac Enzymes 05/07/16 05/08/16 Range/Units 20:42 05:47 Troponin I 0.01 0.02 (0-0.03) ng/mL - ABG Interpretation ABG results: PT/INR, D-dimer PT 24.2 Seconds (9.4-12.1) H 05/07/16 11:03 - VTE Reasons for not Prescribing Prophylaxis: Not indicated-Anticoagulated or INR therapeutic Consult Discharge Plan - Plan Referrals: NO,PCP [Primary Care Provider] -
[2016-05-08] MEDS: Divalproex Sodium 125 MG CAPSULE PO SCH ×2 (15:02→21:10)
[2016-05-08] MEDS: Furosemide 20 MG TABLET PO SCH (15:02)
[2016-05-08] MEDS: Gabapentin 300 MG CAPSULE PO SCH ×2 (15:02→21:10)
[2016-05-08] MEDS: Metoprolol XL (24 HR) Succ 50 MG TAB.ER.24H PO SCH ×2 (15:03→21:10)
[2016-05-08] MEDS: *HR* Rivaroxaban 10 MG TABLET PO SCH (15:03)
[2016-05-08] MEDS: Ranolazine 500 MG TAB.ER.12H PO SCH ×2 (15:03→21:10)
[2016-05-08] MEDS: Isosorbide MONOnitrate (24 HR) 30 MG TAB.ER.24H PO SCH (15:03)
[2016-05-08] MEDS: Cholecalciferol (D-3) 1,000 UNIT TABLET PO SCH (15:03)
[2016-05-08] MEDS: *HR* Digoxin 0.125 MG TABLET PO SCH (15:07)
[2016-05-08] MEDS: Amoxicillin/Clavulanate 500 MG TABLET PO SCH (19:31)
[2016-05-08 21:04] LABS: Adenovirus Not Detected (Not Detect); Bordetella Pertussis Not Detected (Not Detect); Chlamydophila pneumoniae Not Detected (Not Detect); Coronavirus 229E Not Detected (Not Detect); Coronavirus HKU1 Not Detected (Not Detect); Coronavirus NL63 Not Detected (Not Detect); Coronavirus OC43 Not Detected (Not Detect); Human Metapneumovirus Not Detected (Not Detect); Human Rhinovirus/Enterovirus Not Detected (Not Detect); Influenza A Subtype 2009 H1 Not Detected (Not Detect); Influenza A Untypeable Not Detected (Not Detect); Influenza B Not Detected (Not Detect); Mycoplasma pneumoniae Not Detected (Not Detect); Parainfluenza Virus 1 Not Detected (Not Detect); Parainfluenza Virus 2 Not Detected (Not Detect); Parainfluenza Virus 3 Not Detected (Not Detect); Parainfluenza Virus 4 Not Detected (Not Detect); Respiratory Syncytial Virus Not Detected (Not Detect)
[2016-05-09 05:27] LABS: Basophils % 0.7 %; Eosinophils % 0.7 %; Immature Granulocytes % 0.2 % (0-4); Lymphocytes # 1.5 K/mcL (0.6-4.6); Lymphocytes % 37.1 %; Mean Corpuscular HGB Conc 33.6 g/dL (31.6-35.5); Mean Corpuscular Hemoglobin 29.8 pg (28.0-33.3); Mean Corpuscular Volume 88.5 fL (83.0-100.0); Mean Platelet Volume 10.5 fL (9.4-12.4); Monocytes # 0.4 K/mcL (0.0-1.3); Monocytes % 9.2 %; Neutrophils # 2.1 K/mcL (1.6-8.9); Platelet Count 205 K/mcL (140-400); Red Blood Count 3.73 M/mcL (3.82-4.97); Red Cell Distribution Width 14.2 % (11.5-14.5); Segmented Neutrophils % 52.1 %
[2016-05-09 05:40] LABS: Hemoglobin 11.1 g/dL (11.5-15.4)
[2016-05-09 05:50] LABS: BUN/Creatinine Ratio 23 (6-26); Blood Urea Nitrogen 18 mg/dL (7-20); Calcium 8.2 mg/dL (8.6-10.8); Carbon Dioxide 23 mEq/L (19-29); Chloride 104 mEq/L (98-109); Glucose 87 mg/dL (70-99); Osmolality,Calculated 285 (280-300); Sodium 137 mEq/L (136-145); eGFR For African Americans > 60 (> 60); eGFR For Non-African Americans > 60 (> 60)
[2016-05-09] MEDS: Budesonide/Formoterol 160/4.5 MDI IH SCH (07:21)
[2016-05-09] MEDS: Tiotropium 18 MCG inhalation IH SCH (07:22)
[2016-05-09] MEDS: *HR* Digoxin 0.125 MG TABLET PO SCH (10:33)
[2016-05-09] MEDS: Furosemide 20 MG TABLET PO SCH (10:33)
[2016-05-09] MEDS: Amoxicillin/Clavulanate 500 MG TABLET PO SCH ×2 (10:33→18:50)
[2016-05-09] MEDS: Cholecalciferol (D-3) 1,000 UNIT TABLET PO SCH (10:33)
[2016-05-09] MEDS: Metoprolol XL (24 HR) Succ 50 MG TAB.ER.24H PO SCH (10:33)
[2016-05-09] MEDS: Ranolazine 500 MG TAB.ER.12H PO SCH (10:33)
[2016-05-09] MEDS: Divalproex Sodium 125 MG CAPSULE PO SCH (10:33)
[2016-05-09] MEDS: *HR* Rivaroxaban 10 MG TABLET PO SCH (10:33)
[2016-05-09] MEDS: Isosorbide MONOnitrate (24 HR) 30 MG TAB.ER.24H PO SCH (10:33)
[2016-05-09] MEDS: Gabapentin 300 MG CAPSULE PO SCH (10:33)
[2016-05-09 16:19] VITALS: BP 119/81
--- NOTE | 2016-05-09 16:23 | Discharge Summary ---
Date of Encounter: 05/09/16 Time of Encounter: 14:00 - Discharge Diagnosis (1) Bronchiolitis Priority: Primary Status: Acute (2) Chest pain Priority: Primary Status: Acute Qualifiers: Chest pain type: unspecified Qualified Code(s): R07.9 - Chest pain, unspecified (3) DVT prophylaxis Priority: Secondary Status: Acute (4) Atrial fibrillation Priority: Primary Status: Chronic Qualifiers: Atrial fibrillation type: chronic Qualified Code(s): I48.2 - Chronic atrial fibrillation (5) Dementia Priority: Secondary Status: Chronic Qualifiers: Dementia type: unspecified type Dementia behavioral disturbance: without behavioral disturbance Qualified Code(s): F03.90 - Unspecified dementia without behavioral disturbance (6) Diabetes mellitus Priority: Secondary Status: Chronic Qualifiers: Diabetes mellitus type: type 2 Diabetes mellitus complication status: with kidney complications Diabetes mellitus complication detail: with chronic kidney disease Diabetes mellitus correction insulin use: without termite exterminator helper use Chronic kidney disease stage: stage 3 (moderate) Qualified Code(s): E11.22 - Type 2 diabetes mellitus with diabetic chronic kidney disease; N18.3 - Chronic kidney disease, stage 3 (moderate) (7) CAD (coronary artery disease) Priority: Secondary Status: Chronic Qualifiers: Coronary Disease-Associated Artery/Lesion type: [place] artery [place] vs. transplanted heart: [place] heart Associated angina: with stable angina Qualified Code(s): I25.118 - Atherosclerotic heart disease of [place] coronary artery with other forms of angina pectoris - Discharge Medications Prescriptions: Amoxicillin/Clavulanate [Augmentin] 500 mg PO BIDWM #12 tablet Home Medications: Albuterol Sulfate [Albuterol Inhaler] 2 puff IH Q6H PRN 11/08/14 [History] Budesonide/Formoterol 160/4.5 [Symbicort] 2 puff IH BID 11/08/14 [History] Cholecalciferol (Vitamin D3) [Vitamin D3] 2,000 unit PO DAILY 11/08/14 [History] Cyanocobalamin (B-12) [Vitamin B12] 1,000 mcg IM QMONTH 11/08/14 [History] Simvastatin [Zocor] 20 mg PO QPM 11/08/14 [History] Tiotropium [Spiriva] 18 mcg IH DAILY 11/08/14 [History] Acetaminophen [Tylenol] 325 mg PO Q6HR PRN 02/15/15 [History] Metoprolol XL (24 HR) Succ [Toprol XL] 50 mg PO BID 02/15/15 [History] Ranolazine [Ranexa] 1,000 mg PO BID 02/15/15 [History] Bisacodyl [Dulcolax] 10 mg RC DAILY PRN 05/14/15 [History] Mag Hydrox/Al Hydrox/Simeth [Antacid II-Simethicone Liq] 30 ml PO Q8H PRN [History] Menthol [Biofreeze] 1 appl TP TID PRN 05/14/15 [History] Nitroglycerin [Nitrostat] 0.4 mg SL Q5-6MIN PRN 05/14/15 [History] Docusate [Colace] 100 mg PO BID 04/20/16 [History] Furosemide [Lasix] 20 mg PO DAILY 04/20/16 [History] Magnesium Hydroxide [Milk of Magnesia] 2,400 mg PO DAILY PRN 04/20/16 [History] Divalproex Sodium [Depakote Sprinkle] 125 mg PO BID 05/07/16 [History] Gabapentin [Neurontin] 300 mg PO BID 05/07/16 [History] Isosorbide MONOnitrate (24 HR) [Imdur] 30 mg PO DAILY 05/07/16 [History] Lactose-Reduced Food [Ensure Plus] 1 bottle PO 1000,1400 05/07/16 [History] Rivaroxaban [Xarelto] 20 mg PO DAILY 05/07/16 [History] Amoxicillin/Clavulanate [Augmentin] 500 mg PO BIDWM #12 tablet 05/09/16 [Rx] Allergies/Adverse Reactions: Allergies codeine Allergy (Verified 05/07/16 09:40) See Comments Iodinated Contrast Media - Oral and [Iodinated Contrast Media - IV Dye] Allergy (Verified 05/07/16 09:40) See Comments iodine Allergy (Verified 05/07/16 09:40) See Comments - Notes to Outpatient Provider 1. Please continue Augmentin for 6 more days. Please repeat chest CT in 3 months. Please follow up with pulmonology. 2. Patient was suspected repeat aspiration by pulmonology, she did modified barium swallow evaluation, please follow-up speech therapist recommendation. Date of admission: 05/08/16 18:10 Primary care physician: PCP KAVYA Discharging clinician: Shahnaz Charlton Anticipated date of discharge: 05/09/16 - Patient Status Disposition: Transfer SNF Condition: Fair Overall status at discharge: patient is progressing back to baseline - Discharge Instructions Follow Up With: NO,PCP [Primary Care Provider] - - Diet and Activity Activity: as per physical therapy Diet: low fat, low cholesterol, low salt diet, other (Advanced soft diet with honey thickened liquid, further recommendation please refer to speech therapist recommendation) Interval History: Ms. Miramontes is a 89 year old female current resident of a [place] where is she is undergoing rehabilitation was sent [place] because she complained of chest pain during physical therapy and was found to be hypotensive. No fever, no cough. At the time she arrived the ED, she was unable to answer questions, and at that time her heart rate was 138. Systolic blood pressure was 90s. She tells me she is fine now, but confirms she felt sick earlier while she was in the NH. She is unable to answer futher question, the problem appears to be comprehension. She is fixated in telling me she felt fine now, even when I posed a different question. She has underlying dementia. Hospital course: Ms. Miramontes is a 89 year old female admitted for chest pain and tachycardia. She was admitted and placed on continuous cardiac monitoring. 3 sets of troponin negative, EKG unremarkable, CT chest shows pneumonia. Pulmonary consult was called and consider aspiration pneumonia. Patient was recommended to have Augmentin for 7 days. Swallow evaluation done, recommendation is to follow. After treatment, patient's condition has improved. Her A. fib with RVR has improved after digoxin use. We will transfer patient to [facility] for continued treatment and care. I saw and examined the patient today. She is awake, alert, not complaining of chest pain. Heart rate is well controlled at the 70s, vitals are stable, oxygen saturation 95% in room air. Blood pressure is stable. Will discharge patient to ECF. We will fax the modified barium swallow evaluation results/ report to [facility] for closer follow-up. - Time Spent with Patient Total time spent providing and/or coordinating discharge services: 40 minutes Greater than 30 minutes - Constitutional Vitals: Temp Pulse Resp BP Pulse Ox 97.5 F L 71 16 166/96 95 05/09/16 06:36 05/09/16 06:36 05/09/16 07:21 05/09/16 06:36 05/09/16 07:21 General appearance: Present: A&O X 2, no acute distress, answers questions appropriately - Head Head exam: Present: atraumatic, normocephalic - Eye Eye exam: Present: PERRL, conjuntiva pink, sclera anicteric Pupils: Present: PERRL - Neck Neck exam general surgery: Present: supple, trachea midline. Absent: lymphadenopathy - Respiratory Respiratory exam: Present: CTAB. Absent: accessory muscle use, rales, rhonchi, wheezes - Cardiovascular Cardiovascular exam: Present: RRR, +S1, +S2. Absent: diastolic murmur, gallop, rubs, systolic murmur - GI/Abdominal GI/Abdominal exam: Present: normal bowel sounds, soft, no peritoneal signs. Absent: distended, tenderness - Extremities Exam Extremities exam: Present: warm, radial pulses palpable and symetrical. Absent : calf tenderness, cyanotic, pedal edema - Neurological Exam Neurological exam: Present: CN II-XII intact, oriented X3, no focal deficits. Absent: pronater drift, facial droop, speech deficit - Skin Skin exam: Present: dry, intact - VTE Reasons for not Prescribing Prophylaxis: Not indicated-Anticoagulated or INR therapeutic
--- NOTE | 2016-05-09 16:35 | Physician Discharge Referral ---
ExtendedCare Referral Info Transfer To: [facility] Provider in Charge after Transfer: Other - Diagnosis (1) Bronchiolitis Status: Acute (2) Chest pain Status: Acute (3) DVT prophylaxis Status: Acute (4) Atrial fibrillation Status: Chronic (5) Dementia Status: Chronic (6) Diabetes mellitus Status: Chronic (7) CAD (coronary artery disease) Status: Chronic - Transfer Medications Prescriptions: Amoxicillin/Clavulanate [Augmentin] 500 mg PO BIDWM #12 tablet Home Medications: Albuterol Sulfate [Albuterol Inhaler] 2 puff IH Q6H PRN 11/08/14 [History] Budesonide/Formoterol 160/4.5 [Symbicort] 2 puff IH BID 11/08/14 [History] Cholecalciferol (Vitamin D3) [Vitamin D3] 2,000 unit PO DAILY 11/08/14 [History] Cyanocobalamin (B-12) [Vitamin B12] 1,000 mcg IM QMONTH 11/08/14 [History] Simvastatin [Zocor] 20 mg PO QPM 11/08/14 [History] Tiotropium [Spiriva] 18 mcg IH DAILY 11/08/14 [History] Acetaminophen [Tylenol] 325 mg PO Q6HR PRN 02/15/15 [History] Metoprolol XL (24 HR) Succ [Toprol XL] 50 mg PO BID 02/15/15 [History] Ranolazine [Ranexa] 1,000 mg PO BID 02/15/15 [History] Bisacodyl [Dulcolax] 10 mg RC DAILY PRN 05/14/15 [History] Mag Hydrox/Al Hydrox/Simeth [Antacid II-Simethicone Liq] 30 ml PO Q8H PRN [History] Menthol [Biofreeze] 1 appl TP TID PRN 05/14/15 [History] Nitroglycerin [Nitrostat] 0.4 mg SL Q5-6MIN PRN 05/14/15 [History] Docusate [Colace] 100 mg PO BID 04/20/16 [History] Furosemide [Lasix] 20 mg PO DAILY 04/20/16 [History] Magnesium Hydroxide [Milk of Magnesia] 2,400 mg PO DAILY PRN 04/20/16 [History] Divalproex Sodium [Depakote Sprinkle] 125 mg PO BID 05/07/16 [History] Gabapentin [Neurontin] 300 mg PO BID 05/07/16 [History] Isosorbide MONOnitrate (24 HR) [Imdur] 30 mg PO DAILY 05/07/16 [History] Lactose-Reduced Food [Ensure Plus] 1 bottle PO 1000,1400 05/07/16 [History] Rivaroxaban [Xarelto] 20 mg PO DAILY 05/07/16 [History] Amoxicillin/Clavulanate [Augmentin] 500 mg PO BIDWM #12 tablet 05/09/16 [Rx] Allergies/Adverse Reactions: Allergies codeine Allergy (Verified 05/07/16 09:40) See Comments Iodinated Contrast Media - Oral and [Iodinated Contrast Media - IV Dye] Allergy (Verified 05/07/16 09:40) See Comments iodine Allergy (Verified 05/07/16 09:40) See Comments - Respiratory Orders Smoking Cessation: Smoking cessation has been advised. For more information, call the [place] Tobacco Quit Line at 0-651-OGBJ-NOW. - Advance Directives Code Status: DNR-Comfort Care - Rehabiliation Orders Rehab Orders: Evaluation for Physical Therapy, Evaluation for Occupational Therapy, Evaluation for Speech Therapy - Diet Orders Mechanical Soft (Please refer speech therapist note) CERTIFICATION: I certify that the transfer of the above named patient to an Extended Care Facility is necessary for the continuing treatment of the diagnosis listed. The above information is true and accurate reflection of patient's current condition. Confidential - Redisclosure prohibited without a patient's written consent.
[2016-05-10] MEDS ORDERED: *HR* Rivaroxaban 15 MG TABLET PO SCH (17:00)
== END 2016-05-09 18:45 | DRG 308 ==
LOC: EMEROO 09:39 → 2NENU 09:39 → SUATTDRO 14:39 → 2NENU 15:26
PROVIDERS: ADMIT Internal Medicine; ATTEND Internal Medicine